=== PATIENT | male | born 1955 | race Caucasian/White ===

== ENCOUNTER 2018-06-28 07:00 | Day surgery (SDC) | payer OTHER ==
[2018-06-28] MEDS ORDERED: Ringers Lactate 1,000 ML IV ONE (07:34)
[2018-06-28] MEDS ORDERED: LIDOCAINE 2% MPF 5 ML VIAL ONE (08:28)
[2018-06-28] MEDS ORDERED: PROPOFOL 200 MG/20 ML VIAL IV ONE (08:33)
--- NOTE | 2018-06-28 09:05 | ENDO RPT ---
[address], [address] COLONOSCOPY PROCEDURE REPORT EXAM DATE: 06/28/2018 PATIENT NAME: Omero Fink MR #: [id number] BIRTHDATE: 1955 ATTENDING: Tong Moya DR STATUS: outpatient AUTO BODY MAN: Cassi Garcia RN and Dominic Campoverde [facility] INDICATIONS: The patient is a 62 yr old Male here for a colonoscopy due to colon cancer screening and history of polyps PROCEDURE PERFORMED: Colonoscopy with biopsy - cold polypectomy MEDICATIONS: Per Anesthesia. ESTIMATED BLOOD LOSS: None CONSENT: The patient understands the risks and benefits of the procedure and understands that these risks include, but are not limited to: sedation, allergic reaction, infection, perforation and/or bleeding. Alternative means of evaluation and treatment include, among others: physical exam, x-rays, and/or surgical intervention. The patient elects to proceed with this endoscopic procedure. DESCRIPTION OF PROCEDURE: During intra-op preparation period all mechanical medical equipment was checked for proper function. Hand hygiene and appropriate measures for infection prevention was taken. Procedure, possible complications, alternatives including, but not limited to possibility of bleeding, perforation, tear, infection, sepsis, need for surgery, need for blood transfusion, were explained to the patient. After the risks, benefits and alternatives of the procedure were thoroughly explained, Informed consent was verified, confirmed and timeout was successfully executed by the treatment team. The patient was placed in the left lateral position. A digital rectal exam was performed and revealed internal hemorrhoids. After appropriate level of anesthesia, the scope was passed. The EC-[id number] ([id number]) endoscope was introduced through the anus and advanced to the cecum, which was identified by both the appendix and ileocecal valve. The quality of the prep was poor. The instrument was then slowly withdrawn as the colon was fully examined. Scope withdrawal time was 10 minutes. COLON FINDINGS: A few small smooth flat polyps were found at the hepatic flexure, in the rectum, and sigmoid colon. A polypectomy was performed with cold forceps. The resection was complete, the polyp tissue was completely retrieved and sent to histology. Small internal hemorrhoids were found. Retroflexed views revealed no abnormalities. The scope was then completely withdrawn from the patient and the procedure terminated. ADVERSE EVENTS: There were no complications. IMPRESSIONS: 1. Few small flat polyps were found at the hepatic flexure, in the rectum, and sigmoid colon; polypectomy was performed with cold forceps 2. Small internal hemorrhoids RECOMMENDATIONS: 1. follow-up: office 2 week(s) 2. avoid NSAIDS for 2 weeks 3. await biopsy results 4. fiber rich diet 5. yearly hemoccult starting in 4 years 6. hemorrhoidal hygiene RECALL: Return in 3 year(s) for Colonoscopy, pending biopsy results. Pending biopsy results Tong Moya DR eSigned: Tong Moya DR 06/28/2018 8:56 AM cc: CPT CODES: ICD9 CODES: PATIENT NAME: Omero Fink MR#: [id number]
== END 2018-06-28 09:31 | disposition home or self-care (01) ==
LOC: OR 07:00
PROVIDERS: ATTEND Surgery
PROC: 0DBL8ZX Excision of Transverse Colon, Via Natural or Artificial Opening Endoscopic, Diagnostic (ICD-10-PCS; 2018-06-28)
PROC: 0DBP8ZX Excision of Rectum, Via Natural or Artificial Opening Endoscopic, Diagnostic (ICD-10-PCS; principal; 2018-06-28 09:15)
DX: K63.5 Polyp of colon (principal); K62.1 Rectal polyp; K64.8 Other hemorrhoids; I10 Essential (primary) hypertension; E78.5 Hyperlipidemia, unspecified; H40.9 Unspecified glaucoma; F17.210 Nicotine dependence, cigarettes, uncomplicated; Z79.82 Long term (current) use of aspirin; Z82.49 Family history of ischemic heart disease and other diseases of the circulatory system
CPT/HCPCS: 88305

== ENCOUNTER 2021-01-27 07:08 | Day surgery (SDC) | payer OTHER ==
[2021-01-26 12:21] LABS: Absolute Lymphocytes (CBC) 1.3 K/uL (0.7-4.9); Basophils % 0.6 % (0-1.3); Hematocrit 31.8 % (39.6-49.0); Lymphocytes % 19.8 % (15.3-44.8); MPV 7.3 fL (7.6-11.3); RBC Red Blood Cell Count 3.39 M/uL (4.33-5.43)
[2021-01-26 12:45] LABS: Potassium 3.9 mmol/L (3.5-5.1)
--- NOTE | 2021-01-26 12:48 | RAD REPORT ---
EXAM DESCRIPTION: RAD - Chest Pa And Lat (2 Views) - 01/26/2021 12:13 pm CLINICAL HISTORY: preop, pending cardiac catheterization COMPARISON: Portable chest December 2009, CT chest trauma Michael December 2009 TECHNIQUE: Frontal and lateral views of the chest were obtained. FINDINGS: The lungs are clear of an acute infiltrate, failure or volume overload finding. In the lef t midlung field there is a ill-defined 7 mm nodule. No other mass or nodule confirmed. No definitive correlate seen on the 2 prior studies to allow all confirmation of stability. Heart size is normal and central vasculature is within normal limits. No pleural effusion or pneu mothorax seen. No acute bony finding noted. No aortic abnormality. IMPRESSION: No failure, infiltrate or acute cardiopulmonary finding. Small 7 mm nodule in the left midlung field is identified. This is not emergent but can be followed u p. Cereal repeat chest chest films could be obtained, first one to be performed in 3-4 months. . If patient is considered at higher risk for malignancy, contrast-enhanced CT chest imaging could be perf ormed.
[2021-01-26 12:50] LABS: Protime INR 0.97
[~2021-01-27 07:08] MED LIST: HEPA 1000U/500MLS 1,000 UNIT/500 ML BAG IV ONE; LIDOCAINE 1% 20 ML MDV ONE
[2021-01-27 08:06] VITALS: TEMP 95.9
[2021-01-27] MEDS ORDERED: NA CHLORIDE 0.9% 500 ML ONE (08:16)
[2021-01-27] MEDS ORDERED: MIDAZOLAM HCL 2 MG/2 ML INJ ONE ×2 (09:29→09:40)
[2021-01-27] MEDS ORDERED: ATROPINE SULF 1 MG/10 ML SYR IV ONE (09:30)
[2021-01-27] MEDS ORDERED: FENTANYL CITR 100 MCG/2 ML ONE (09:30)
[2021-01-27] MEDS ORDERED: NA CHLORIDE 0.9% 0 ML ONE (09:30)
[2021-01-27 11:13] VITALS: BP 155/54; O2SAT 99
--- NOTE | 2021-01-27 20:44 | OP ---
Date of Procedure: 01/27/2021 Surgeon: John Allison MD International Tax Manager: Cosme Rodgers. Procedures Performed: Left heart catheterization, selective coronary arteriogram, and left ventricul ogram. Indication: Positive stress test. Mr. Fink is a 65-year-old white male, has had a history of leiva tid stent on the right side. Recent carotid Doppler was unremarkable. He has had chest pain, positi ve anteroapical inferior ischemia. Description Of Procedure: He was brought to the radiographer cardiac catheterization today for a diagnostic catheterization. He was prepped and draped in routine sterile fashion, given Versed for sedation. A 6-Icelandic sheath int roduced in the right common femoral artery successfully using Seldinger technique and 10 cc of Xyloca ine. A 4-Icelandic JR4 was inserted into the left main. Angiography showed a 90% long ostial LAD steno sis, 80% ostial diagonal stenosis, normal circumflex. A 6-Icelandic JR4 was used to cannulate the right main that was a normal RCA in his right dominant. Following that, a 6-Icelandic pigtail catheter was i ntroduced in the left ventricle. He had a normal left ventricular ejection fraction, normal wall mot ion, normal left ventricular end-diastolic pressure. No new complications. Estimated Blood Loss: 5 mL. Postoperative Diagnoses: Coronary artery disease, severe. Plan for CABG. I will give him a CD and I will have a CD myself for Dr. Mathur or Dr. Burciaga to review. Anesthesia: Total conscious sedation was 45 minutes. Plan: Plan is to have the patient at bedrest for 2 hours, go home in 2 hours and we will arrange for outpatient workup. BRIANNA/GHASSAN Voice ID: [id number] Report ID: [id number]
== END 2021-01-27 11:45 | disposition home or self-care (01) ==
LOC: CCL 07:08
DX: I25.10 Atherosclerotic heart disease of native coronary artery without angina pectoris (principal); I70.213 Atherosclerosis of native arteries of extremities with intermittent claudication, bilateral legs; I65.23 Occlusion and stenosis of bilateral carotid arteries; I10 Essential (primary) hypertension; E78.2 Mixed hyperlipidemia; G62.9 Polyneuropathy, unspecified; Z95.820 Peripheral vascular angioplasty status with implants and grafts; Z87.891 Personal history of nicotine dependence; Z20.822 Contact with and (suspected) exposure to COVID-19; Z82.49 Family history of ischemic heart disease and other diseases of the circulatory system
CPT/HCPCS: 85025; 80048; 36415; 85610; 85730; 71046; 93458; U0003; C1893; J2250 ×2; J3010; J7040; J1644; J0583

== ENCOUNTER 2021-02-17 22:55 | Emergency (ER) | payer OTHER ==
--- OUTSIDE RECORDS SUMMARY | 2021-02-17 22:58 | XMS REPORT | Continuity of Care Document ---
:[address] [facility] t Address [address] [place] [address] Care Team Providers Name Role Phone Ghislaine MILLARD Attending Clinician Unavailable Provider Attending Clinician Unavailable Mark PLATT Attending Clinician Unavailable Patrica ARAUJO, Doyle Attending Clinician [phone] Payers Payer Name Policy Type Policy Effective Expiration Source Number Date Date TEXANPLUSTEXANPLUS [id number] 2020 [place] [id number] 2020- 00:00:00 M ethodist esentHMO Problems Condition Condition Condition Status Onset Resolution Last Treating Co mments Source Name Details Category Date Date Treatment Clinician Date Coronary Coronary Disease Active Overview: [place] artery artery 5-25 Formattin Method[facility] disease disease 00:00: g of this st involving involving 00 note stebbins stebbins might be coronary coronary different artery of artery of from the stebbins stebbins original. heart with heart with Added unstable unstable automatic angina angina ally from pectoris pectoris request for surgery [id number] Body mass Body Mass Problem Active Tangela barbara index Index 3-09 Family 25-29 - 25-29 - 00:00: Practic overweight Overweight 00 e Essential Essential Problem Active Tangela barbara hypertensi Hypertensi 3-05 Fa yfn on on 00:00: Practic 00 e Allergies, Adverse Reactions, Alerts Allergy Allergy Status Severity Reaction(s) Onset Inactive Treating Comm ents Source Name Type Date Date Clinician Vitamin Propensi Active Swelling [place] A ty to 5-18 Methodi adverse 00:00: st reaction 00 s to drug Social History Social Habit Start Date Stop Date Quantity Comments Source History of tobacco Cigarette Smoker [place] use [facility] Exposure to Not sure [place] SARS-CoV-2 (event) Method ist Cigarettes smoked 2021-02-08 2021-02-08 [place] current (pack per 00:00:00 00:00:[address] day) - Reported Cigarette 2021-02-08 2021-02-08 [place] pack-years 00:00:00 00:00:00 [facility] Tobacco use and 2021-02-08 2021-02-08 Never used [place] exposure 00:00:00 00:00:00 [facility] Alcohol intake 2021-02-08 2021-02-08 Current drinker [place] 00:00:00 00:00:00 of alcohol [facility] (finding) Sex [birth year] [place] 00:00:00 00:00:00 [facility] Smoking Status Start Date Stop Date Source Heavy Tobacco Smoker [facility] Practice Current every day smoker 2021-02-08 00:00:00 Gatito armijo [facility] Medications Ordered Filled Start Stop Current Ordering Indication Dosage Frequency Signature Comments Components Source Medication Medication Date Date Medication? Clinician (SIG) Name Name ferrous Yes Q24H daily. Silvino sulfate 325 -18 Methodi (65 FE) MG 16:12: st tablet 25 aspirin 81 Yes Q24H daily. Analiliat on mg chewable -18 Methodi tablet 16:12: st 25 cholecalcif Yes Q24H daily. Analilia carmona sundar, 5-18 [facility] vitamin D3, 16:12: st 50 mcg 25 (2,000 unit) capsule capsule lisinopriL- Yes Q24H daily. Analilia ton hydrochloro 5-18 [facility] thiazide 16:12: st (PRINZIDE) 25 20-12.5 mg per tablet bimatoprost Yes Q24H daily. Analilia ton (Lumigan) 5-18 Methodi 0.01 % 16:12: st ophthalmic 25 drops multivit Yes multivitam Gatito armijo with 5-18 in 1 daily Methodi minerals/simi 16:12: st tein 25 (MULTIVITAM IN 50 PLUS ORAL) simvastatin 0 Yes [place] (ZOCOR) 40 5-16 Method[facility] mg tablet 00:00: st 00 clopidogreL Yes 75mg QD Take 75 mg [place] (PLAVIX) 75 3-29 by mouth Meth kobi mg tablet 00:00: daily. st 00 carvediloL 2009-0 Yes Q24H daily. [place] (COREG) 6 Methodi 12.5 MG 00:00: st tablet 00 aspirin 81 aspirin 81 No 1 Q1D aspirin 81 Village mg chewable mg chewable mg F amily tablet Chew tablet Chew chewable Practic 1 tablet 1 tablet tablet e every day every day Chew 1 by oral by oral tablet route. route. every day by oral route. carvedilol carvedilol No 1 Q1D carvedilol [facility] 12.5 mg 12.5 mg 12.5 mg Family tablet Take tablet Take tablet Practic 1 tablet 1 tablet Take 1 e every day every day tablet by oral by oral every day route for route for by oral 90 days. 90 days. route for 90 days. clopidogrel clopidogrel No 1 Q1D clopidogre [facility] 75 mg 75 mg l 75 mg Family tablet Take tablet Take tablet Practic 1 tablet 1 tablet Take 1 e every day every day tablet by oral by oral every day route for route for by oral 90 days. 90 days. route for 90 days. ferrous ferrous No 1 Q1D ferrous Vill[place] e sulfate 325 sulfate 325 sulfate Family mg (65 mg mg (65 mg 325 mg (65 Practic iron) iron) mg iron) e tablet Take tablet Take tablet 1 tablet 1 tablet Take 1 every day every day tablet by oral by oral every day route. route. by oral route. lisinopril lisinopril No 1 Q1D lisinopril [facility] 20 20 20 Family mg-hydrochl mg-hydrochl mg-hydroch Practic orothiazide orothiazide lorothiazi e 12.5 mg 12.5 mg de 12.5 mg tablet Take tablet Take tablet 1 tablet 1 tablet Take 1 every day every day tablet by oral by oral every day route. route. by oral route. Trae Larkin No 1drop(s Q1D Trae Tangela barbara 0.01 % eye 0.01 % eye ) 0.01 % eye Family drops Apply drops Apply drops Practic 1 drop 1 drop Apply 1 e every day every day drop every by by day by ophthalmic ophthalmic ophthalmic route for route for route for 90 days. 90 days. 90 days. multivitami multivitami No multivitam Village n 1 daily n 1 daily in 1 daily Family Practic e simvastatin simvastatin No 1 Q1D gail [facility] 40 mg 40 mg n 40 mg Family tablet Take tablet Take tablet Practic 1 tablet 1 tablet Take 1 e every day every day tablet by oral by oral every day route for route for by oral 90 days. 90 days. route for 90 days. Vitamin D3 Vitamin D3 No 1capsul Q1D Vitamin D3 [facility] 50 mcg 50 mcg e(s) 50 mcg Family (2,000 (2,000 (2,000 Practic unit) unit) unit) e capsule capsule capsule Take 1 Take 1 Take 1 capsule capsule capsule every day every day every day by oral by oral by oral route. route. route. Immunizations Ordered Immunization Filled Immunization Date Status Commen ts Source Name Name pneumococcal pneumococcal 2019-06-24 [facility] polysaccharide PPV23 polysaccharide PPV23 00:00:00 Practice pneumococcal pneumococcal 2018-06-24 [facility] conjugate PCV 13 conjugate PCV 13 00:00:00 Pr actice Vital Signs Vital Name Observation Time Observation Value Comments Source BP Diastolic 2019-11-27 68 mm[Hg] [facility] 00:00:00 Practice Height 2019-11-27 64 [in_i] [facility] 00:00:00 Practice BMI (Body Mass 2019-11-27 27.6 kg/m2 [facility] Famil y Index) 00:00:00 Practice BP Systolic 2019-11-27 142 mm[Hg] [facility] 00:00:00 Practice Body Weight 2019-11-27 160.6 [lb_av] [facility] 00:00:00 Practice Systolic blood 2021-02-08 149 mm[Hg] 135/67 LT arm [place] pressure 16:04:00 [facility] Diastolic blood 2021-02-08 68 mm[Hg] 135/67 LT arm [place] pressure 16:04:00 [facility] Heart rate 2021-02-08 70 /min [place] 16:04:00 [facility] Body temperature 2021-02-08 36.17 Ayesha [place] 16:04:00 [facility] Body height 2021-02-08 162.6 cm [place] 16:04:00 [facility] Body weight 2021-02-08 71.351 kg [place] 16:04:00 [facility] BMI 2021-02-08 27.00 kg/m2 [place] 16:04:00 [facility] Oxygen saturation 2021-02-08 99 /min [place] in Arterial blood 16:04:00 [facility] by Pulse oximetry Procedures Procedure Date / Time Performed Performing Clinician Tobin chambers Procedure on Carotid 2014-01-26 00:00:00 [facility] Body Practice Abdomen Surgery 2010-01-19 00:00:00 [facility] Cristian susan Procedure Practice Plan of Care Planned Activity Planned Date Details Comments Source Future Scheduled Test 2021-04-24 INFLUENZA VACCINE H o[place] [facility] 00:00:00 [code = INFLUENZA VACCINE] Future Scheduled Test 2006 COLONOSCOPY [place] [facility] 00:00:00 SCREENING [code = COLONOSCOPY SCREENING] Future Scheduled Test 2006 SHINGLES VACCINES H o[place] [facility] 00:00:00 (#1) [code = SHINGLES VACCINES (#1)] Future Scheduled Test 1974 Hepatitis C [place] [facility] 00:00:00 screening (procedure) [code = 051215498] Future Scheduled Test 1968 COVID-19 VACCINE (1) [place] [facility] 00:00:00 [code = COVID-19 VACCINE (1)] Future Appointment 2021-03-11 Stevie armijo [facility] 07:30:00 , [address] [place] [address] STREET; [address], [place] [address] Future Appointment 2021-03-11 Stevie armijo [facility] 07:30:00 , [address] [place], [place] [address]N STREET; [address], [place] [address] Instructions [facility] Encounters Start End Encounter Admission Attending Care Care Encounter Source Date/Time Date/Time Type Type Clinicians Facility Department ID 2021-02-08 2021-02-09 Outpatient [facility] [id number] [place] 00:00:00 00:00:00 , STEVIE [address] 2021-02-03 2021-02-03 Outpatient [facility] [id number] [place] 00:00:00 00:00:00 , STEVIE [address] 2021-01-31 2021-01-31 Outpatient [facility] [id number] [facility] 00:00:00 00:00:00 Neha Huertas ent Clinics 2021-01-14 2021-01-14 Outpatient [facility] [id number] [facility] Neha blank Outpati ent Clinics 2020-10-21 2020-10-21 Outpatient [facility] [id number] [facility]00 [facility] Outpati ent [facility] 2019-11-27 2019-11-27 Mazin Goddard [facility] [place] - [id number] [facility] 00:00:00 00:00:00 AUGUSTIN Mukherjee[facility] [address], [email or web address] e [facility], [facility], [place] [address] , Ph. Results This patient has no known results.
[2021-02-17 23:37] LABS: Absolute Lymphocytes (CBC) 1.9 K/uL (0.7-4.9); Basophils % 0.8 % (0-1.3); Lymphocytes % 25.3 % (15.3-44.8); MPV 7.5 fL (7.6-11.3); RBC Red Blood Cell Count 2.13 M/uL (4.33-5.43)
[2021-02-17 23:44] LABS: Hematocrit 19.6 % (39.6-49.0)
[2021-02-17 23:55] LABS: ALT/SGPT 20 U/L (12-78); AST/SGOT 17 U/L (15-37); Albumin 3.8 g/dL (3.4-5.0); Alkaline Phosphatase 59 U/L (45-117); BUN Blood Urea Nitrogen 24 mg/dL (7-18); Bicarbonate 29 mmol/L (21-32); Bilirubin Direct < 0.1 mg/dL (0-0.2); Bilirubin Total 0.2 mg/dL (0.2-1.0); Glucose Level 104 mg/dL (74-106); Magnesium 2.2 mg/dL (1.8-2.4); NT PRO-BNP 326 pg/mL (<125); Protein, Total 7.4 g/dL (6.4-8.2); Sodium Level 134 mmol/L (136-145); Troponin (Emerg Dept Use Only) < 0.02 ng/mL (0.0-0.045)
[2021-02-18] MEDS ORDERED: MORPHINE 4 MG/ML SYR ONE (00:08)
[2021-02-18] MEDS ORDERED: ONDANSETRON 4 MG/2 ML VIAL ONE (00:09)
[2021-02-18] MEDS ORDERED: NA CHLORIDE 0.9% 250 ML ONE ×2 (00:33→02:29)
[2021-02-18] MEDS ORDERED: PANTOPRAZOLE 40 MG INJ ONE (00:33)
[2021-02-18 00:34] LABS: Protime INR 0.97
--- NOTE | 2021-02-18 03:40 | ER ---
Nurse's Notes [facility] Name: Omero Fink Age: 65 yrs Sex: Male : 1955 Arrival Date: 02/17/2021 Time: 23:02 Bed 15 Private MD: Diagnosis: Chest pain, unspecified;GI Bleed Presentation: 02/17 23:03 Chief complaint: EMS states: on and off chest pain that started an hour ago. Pt also wh C/O left arm pain and numbness of the lips. Pt states Hx of 90% blockage and due for BYpass on March 11. Coronavirus screen: Client denies travel out of the [place] in the last 14 days. At this time, the client does not indicate any symptoms associated with coronavirus-19. Ebola Screen: Patient negative for fever greater than or equal to 101.5 degrees Fahrenheit, and additional compatible Ebola Virus Disease symptoms Patient denies exposure to infectious person. Initial Sepsis Screen: Does the patient meet any 2 criteria? No. Patient's initial sepsis screen is negative. Does the patient have a suspected source of infection? No. Patient's initial sepsis screen is negative. Risk Assessment: Do you want to hurt yourself or someone else? Patient reports no desire to harm self or others. Onset of symptoms was February 17, 2021. 23:03 Method Of Arrival: EMS: [facility] 23:03 Acuity: MITA 3 23:05 Care prior to arrival: None. Historical: - Allergies: 23:07 No Known Allergies; - Home Meds: 23:07 Aspirin Oral [Active]; carvedilol oral oral [Active]; clopidogrel oral oral [Active]; Lisinopril Oral [Active]; Simvastatin Oral [Active]; - PMHx: 23:07 Hypertension; Afib; wh - Immunization history:: Adult Immunizations not up to date. - Social history:: Smoking status: Patient/guardian denies using tobacco, Patient uses alcohol. Screenin:08 Abuse screen: Denies threats or abuse. Denies injuries from another. Nutritional screening: No deficits noted. Tuberculosis screening: No symptoms or risk factors identified. Fall Risk None identified. Assessment: 23:08 General: Appears in no apparent distress. Behavior is calm, cooperative, appropriate wh for age. Pain: Complains of pain in chest Pain radiates to left arm Quality of pain is described as pressure, Pain began 1 hour ago. Is intermittent. Neuro: Level of Consciousness is awake, alert, obeys commands, Oriented to person, place, time, situation, Appropriate for age. Cardiovascular: Heart tones S1 S2. Respiratory: Airway is patent Respiratory effort is even, unlabored, Respiratory pattern is regular, symmetrical, Breath sounds are clear bilaterally. GI: Abdomen is flat, non-distended. : No signs and/or symptoms were reported regarding the genitourinary system. EENT: No signs and/or symptoms were reported regarding the EENT system. Derm: Skin is intact, is healthy with good turgor, Skin is pink, warm \T\ dry. normal. Musculoskeletal: Circulation, motion, and sensation intact. 02/18 01:00 Reassessment: Patient appears in no apparent distress at this time. Patient and/or family updated on plan of care and expected duration. Pain level reassessed. Patient is alert, oriented x 3, equal unlabored respirations, skin warm/dry/pink. 02:30 Reassessment: Patient appears in no apparent distress at this time. Patient and/or wh family updated on plan of care and expected duration. Pain level reassessed. Patient is alert, oriented x 3, equal unlabored respirations, skin warm/dry/pink. Initial BT 1 unit PRBC administered. Vital Signs: 02/17 23:03 BP 137 / 95; Pulse 75; Resp 18; Temp 97.8; Pulse Ox 97% ; Weight 73.94 kg; Height 5 ft. 5 in. (165.10 cm); 02/18 01:00 BP 138 / 58; Pulse 68; Resp 18; Pulse Ox 100% on R/A; 02:30 BP 137 / 59; Pulse 69; Resp 18; Pulse Ox 97% on R/A; 02/17 23:03 Body Mass Index 27.12 (73.94 kg, 165.10 cm) ED Course: 02/17 23:02 Patient arrived in ED. 23:05 Triage completed. 23:05 Blas Rodríguez MD is Attending Physician. [facility] 23:05 Inserted saline lock: 20 gauge in right antecubital area, using aseptic technique. Blood collected. Patient maintains SpO2 saturation greater than 95% on room air. 23:15 Arm band placed on right wrist. 23:15 Patient has correct armband on for positive identification. Placed in gown. Bed in low wh position. Call light in reach. Side rails up X 1. shelter monitor on. Pulse ox on. NIBP on. 23:26 Vishal Puentes, RN is Primary Nurse. 02/18 00:10 XRAY Chest (1 view) In Process Unspecified. EDMS 00:22 initiated a transfer with Michelle Boyce from [facility]. mw2 00:49 doc [address] doc with Dr. Rojo from [facility]. mw2 01:13 [facility] denied because they feel the patient needs an IMU or ICU bed mw2 which they do not have. 02:20 initiated a transfer with Maria Isabel from [facility]. mw2 02:30 [facility] denied due to IMU capacity. mw2 02:31 trying [facility]. mw2 03:08 doc to doc with the hospitalist from [facility]. mw2 03:14 [facility] denied due to capacity. mw2 03:15 trying to transfer to [facility]. mw2 03:34 administrative approval given by Maria Isabel Alston/ patient has been accepted to [address]/ Dr. Watson accepted the patient in transfer/ report to be called to [phone]. 04:13 No provider procedures requiring assistance completed. Patient transferred, IV remains in place. Administered Medications: 00:12 Drug: morphine 2 mg {Note: RASS 0.} Route: IVP; Site: right antecubital; 02:47 Follow up: Response: No adverse reaction; Pain is decreased; RASS: Alert and Calm (0) 00:24 Drug: ProTONIX (pantoprazole) 8 mg/hr Route: IV; Rate: 25 ml/hr; Site: right antecubital; 04:14 Follow up: Response: No adverse reaction; IV Status: Infusion continued upon transfer 00:26 Drug: ProTONIX (pantoprazole) 80 mg Route: IVP; Site: right antecubital; 01:28 Follow up: Response: No adverse reaction 01:29 Drug: Zofran (Ondansetron) 4 mg Route: IVP; Site: right antecubital; 02:47 Follow up: Response: No adverse reaction; Nausea is decreased Medication: 02:30 Blood products: PRBCs X 1 unit given. Outcome: 03:39 ER care complete, transfer ordered by . mh7 04:14 Transferred by ground EMS to [facility], Transfer form completed. X-rays sent w/ patient. Note: Report given to Camilo MILLARD and [facility] 04:14 Condition: stable 04:14 Instructed on the need for transfer. 04:14 Patient left the ED. Signatures: Dispatcher [employer] EDMS Vishal Puentes RN RN Patric Mckeon mw2 Blas Rodríguez MD MD mh7
--- NOTE | 2021-02-18 03:40 | EDPHYS ---
Physician Documentation [facility] Name: Omero Fink Age: 65 yrs Sex: Male : 1955 Arrival Date: 02/17/2021 Time: 23:02 Bed 15 Private MD: ED Physician Blas Rodríguez HPI: 02/17 23:40 This 65 yrs old Male presents to ER via EMS with complaints of Chest Pain. [facility] 23:40 The patient or guardian reports chest pain that is located primarily in the anterior mh7 chest wall, left. Onset: today, at 21:00. The pain radiates to the left arm. Associated signs and symptoms: Pertinent positives: shortness of breath, Pertinent negatives: abdominal pain, cough, diaphoresis, dizziness, headache, lower extremity pain, lower extremity swelling, lightheadedness, nausea, near syncope, palpitations, recent travel, syncope, vomiting. The chest pain is described as a heaviness. Duration: The patient or guardian reports multiple episodes, that are intermittent, that wax and wane. Modifying factors: The symptoms are alleviated by nothing. the symptoms are aggravated by nothing. Severity of pain: At its worst the pain was moderate today, in the emergency department the pain has improved moderately. Historical: - Allergies: 23:07 No Known Allergies; wh - Home Meds: 23:07 Aspirin Oral [Active]; carvedilol oral oral [Active]; clopidogrel oral oral [Active]; wh Lisinopril Oral [Active]; Simvastatin Oral [Active]; - PMHx: 23:07 Hypertension; Afib; wh - Immunization history:: Adult Immunizations not up to date. - Social history:: Smoking status: Patient/guardian denies using tobacco, Patient uses alcohol. ROS: 23:40 Constitutional: Negative for fever, chills, and weight loss, Eyes: Negative for injury, mh7 pain, redness, and discharge, ENT: Negative for injury, pain, and discharge, Neck: Negative for injury, pain, and swelling, Abdomen/GI: Negative for abdominal pain, nausea, vomiting, diarrhea, and constipation, Back: Negative for injury and pain, : Negative for injury, bleeding, discharge, and swelling, MS/Extremity: Negative for injury and deformity, Skin: Negative for injury, rash, and discoloration, Neuro: Negative for headache, weakness, numbness, tingling, and seizure, Psych: Negative for depression, anxiety, suicide ideation, homicidal ideation, and hallucinations, Allergy/Immunology: Negative for hives, rash, and allergies, Endocrine: Negative for neck swelling, polydipsia, polyuria, polyphagia, and marked weight changes, Hematologic/Lymphatic: Negative for swollen nodes, abnormal bleeding, and unusual bruising. Exam: 23:40 Constitutional: This is a well developed, well nourished patient who is awake, alert, mh7 and in no acute distress. Head/Face: Normocephalic, atraumatic. Eyes: Pupils equal round and reactive to light, extra-ocular motions intact. Lids and lashes normal. Conjunctiva and sclera are non-icteric and not injected. Cornea within normal limits. Periorbital areas with no swelling, redness, or edema. Neck: Trachea midline, no thyromegaly or masses palpated, and no cervical lymphadenopathy. Supple, full range of motion without nuchal rigidity, or vertebral point tenderness. No Meningismus. Chest/axilla: Normal chest wall appearance and motion. Nontender with no deformity. No lesions are appreciated. Cardiovascular: Regular rate and rhythm with a normal S1 and S2. No gallops, murmurs, or rubs. Normal PMI, no JVD. No pulse deficits. Respiratory: Lungs have equal breath sounds bilaterally, clear to auscultation and percussion. No rales, rhonchi or wheezes noted. No increased work of breathing, no retractions or nasal flaring. Abdomen/GI: Soft, non-tender, with normal bowel sounds. No distension or tympany. No guarding or rebound. No evidence of tenderness throughout. Back: No spinal tenderness. No costovertebral tenderness. Full range of motion. Skin: Warm, dry with normal turgor. Normal color with no rashes, no lesions, and no evidence of cellulitis. MS/ Extremity: Pulses equal, no cyanosis. Neurovascular intact. Full, normal range of motion. Neuro: Awake and alert, GCS 15, oriented to person, place, time, and situation. Cranial nerves II-XII grossly intact. Motor strength 5/5 in all extremities. Sensory grossly intact. Cerebellar exam normal. Normal gait. Psych: Awake, alert, with orientation to person, place and time. Behavior, mood, and affect are within normal limits. 23:40 Abdomen/GI: Rectal exam: Prostate: normal, rectal tone normal, Stool: guaiac positive, mh7 black, hemorrhoid(s), are not appreciated, mass, is not appreciated, swelling, is not appreciated, tenderness, is not appreciated, fecal impaction, is not appreciated, the exam is chaperoned by the nurse. Vital Signs: 23:03 BP 137 / 95; Pulse 75; Resp 18; Temp 97.8; Pulse Ox 97% ; Weight 73.94 kg; Height 5 ft. 5 in. (165.10 cm); 02/18 01:00 BP 138 / 58; Pulse 68; Resp 18; Pulse Ox 100% on R/A; 02:30 BP 137 / 59; Pulse 69; Resp 18; Pulse Ox 97% on R/A; 02/17 23:03 Body Mass Index 27.12 (73.94 kg, 165.10 cm) MDM: 02/17 23:40 Differential diagnosis: acute myocardial infarction, acute pericarditis, anxiety, mh7 coronary artery disease chest wall pain, congestive heart failure costochondritis, myocarditis, pericarditis, pneumonia, pneumothorax. HEART Score: History: Moderately Suspicious (1), ECG: Normal (0), Age: > 45 and < 65 years (1), Risk Factors: 1 or 2 risk factors (1), [Hypertension] Troponin: < or = 1 x Normal Limit (0), Total Score = 4. Data reviewed: vital signs, nurses notes, old medical records, lab test result(s), cardiac enzymes, CBC, electrolytes, EKG, radiologic studies, plain films. Data interpreted: Pulse oximetry: on room air is 97 %. Interpretation: normal. Counseling: I had a detailed discussion with the patient and/or guardian regarding: the historical points, exam findings, and any diagnostic results supporting the discharge/admit diagnosis, the presence of at least one elevated blood pressure reading (>120/80) during this emergency department visit, lab results, radiology results, the need to transfer to another facility, [facility] does not immediately have the required specialist. 02/18 03:39 Patient medically screened. [facility] 02/17 23:03 Order name: Basic Metabolic Panel; Complete Time: 23:57 02/17 23:03 Order name: CBC with Diff; Complete Time: 23:45 02/17 23:03 Order name: LFT's; Complete Time: 00:12 02/17 23:03 Order name: Magnesium; Complete Time: 00:12 02/17 23:03 Order name: NT PRO-BNP; Complete Time: 00:12 02/17 23:03 Order name: PT-INR; Complete Time: 00:51 02/17 23:03 Order name: Troponin (emerg Dept Use Only); Complete Time: 00:12 02/17 23:45 Order name: Type And Screen [facility] 02/18 00:04 Order name: ETOH Level; Complete Time: 03:06 [facility] 02/18 00:05 Order name: Lipase; Complete Time: 03:06 [facility] 02/18 00:20 Order name: COVID-19 : Document "Date of Symptom Onset" if Symptomatic. [facility] 02/17 23:03 Order name: XRAY Chest (1 view) 02/17 23:03 Order name: EKG; Complete Time: 23:04 02/17 23:03 Order name: Cardiac monitoring; Complete Time: 00:06 02/17 23:03 Order name: EKG - Nurse/Tech; Complete Time: 00:06 02/17 23:03 Order name: IV Saline Lock; Complete Time: 00:06 02/17 23:03 Order name: Labs collected and sent; Complete Time: 00:06 02/17 23:03 Order name: O2 Per Protocol; Complete Time: 00:06 02/17 23:03 Order name: O2 Sat Monitoring; Complete Time: 00:06 02/17 23:44 Order name: Labs - recollect needed: blue top needed; Complete Time: 00:05 [facility] 02/18 00:39 Order name: Packed RBC Leukored [facility] 02/18 01:20 Order name: SARS-COV-2 RT PCR; Complete Time: 03:06 [facility] 02/18 00:04 Order name: Transfuse; Complete Time: 02:12 [facility] Administered Medications: 00:12 Drug: morphine 2 mg {Note: RASS 0.} Route: IVP; Site: right antecubital; 02:47 Follow up: Response: No adverse reaction; Pain is decreased; RASS: Alert and Calm (0) 00:24 Drug: ProTONIX (pantoprazole) 8 mg/hr Route: IV; Rate: 25 ml/hr; Site: right antecubital; 04:14 Follow up: Response: No adverse reaction; IV Status: Infusion continued upon transfer 00:26 Drug: ProTONIX (pantoprazole) 80 mg Route: IVP; Site: right antecubital; 01:28 Follow up: Response: No adverse reaction 01:29 Drug: Zofran (Ondansetron) 4 mg Route: IVP; Site: right antecubital; 02:47 Follow up: Response: No adverse reaction; Nausea is decreased Disposition: 02/18/21 03:39 Transfer ordered to [facility]. Diagnosis are Chest pain, unspecified, GI Bleed. - Reason for transfer: Higher level of care. - Accepting physician is Dr. Watson. - Condition is Stable. - Problem is new. - Symptoms have improved. Signatures: Dispatcher [employer] [facility] Jorge Soares, SET UP MECHANIC CROWN ASSEMBLY MACHINE-C SET UP MECHANIC CROWN ASSEMBLY MACHINE-Cla1 Vishal Puentes RN RN Patric Mckeon [facility] Blas Rodríguez MD MD mh7 Corrections: (The following items were deleted from the chart) 00:35 00:21 CORONAVIRUS ordered. [facility] EDMS 00:39 00:05 PACKED RBC LEUKORED -1+BB.LAB.BRZ ordered. [facility] EDMS 00:39 00:06 ABO/RH typing ordered. [facility] EDMS 00:39 00:06 Antibody Screen ordered. [facility] EDMS 04:14 03:39 02/18/2021 03:39 Transfer ordered to [facility]. Diagnosis is Chest wh pain, unspecified; GI Bleed. Reason for transfer: Higher level of care. Accepting physician is Dr. Watson. Condition is Stable. Problem is new. Symptoms have improved. mh7
[2021-02-18 04:22] VITALS: TEMP 97.8
[2021-02-18 04:24] VITALS: BP 137/59; O2SAT 97
--- NOTE | 2021-02-18 07:51 | EKG ---
Test Date: 2021-02-17 Test Time: 22:59:54 Statistical Programmer Analyst: JATIN MEASUREMENT RESULTS: Intervals: Rate: 78 MA: QRSD: 64 QT: 360 QTc: 410 [place]: P: MA: QRS: 79 T: 67 INTERPRETIVE STATEMENTS: Accelerated Junctional rhythm Nonspecific ST abnormality Abnormal ECG Compared to ECG 10/20/1994 13:46:00 Accelerated junctional rhythm now present ST (T wave) deviation now present Sinus rhythm no longer present Right-axis deviation no longer present Electronically Signed On 02-18-21 07:51:27 CDT by John Allison
--- NOTE | 2021-02-18 08:22 | RAD REPORT ---
EXAM DESCRIPTION: RAD - Chest Single View - 02/18/2021 12:10 am CLINICAL HISTORY: CHEST PAIN Chest pain. COMPARISON: Chest Pa And Lat (2 Views) dated 01/26/2021; CHEST SINGLE VIEW dated 01/19/2010 FINDINGS: Portable technique limits examination quality. The lungs are grossly clear. The heart is normal in size. No displaced fractures. IMPRESSION: No acute intrathoracic process suspected.
--- NOTE | 2021-02-18 11:55 | EKG ---
Test Date: 2021-02-17 Test Time: 23:00:41 Sales Enablement Lead: JATIN MEASUREMENT RESULTS: Intervals: Rate: 79 LA: 186 QRSD: 78 QT: 376 QTc: 431 [place]: P: 73 LA: 186 QRS: 79 T: 68 INTERPRETIVE STATEMENTS: Normal sinus rhythm Normal ECG Compared to ECG 02/17/2021 22:59:54 Accelerated junctional rhythm no longer present ST (T wave) deviation no longer present Electronically Signed On 02-18-21 11:54:03 CDT by John Allison
== END 2021-02-18 04:14 | disposition short-term general hospital (02) ==
LOC: ER 22:55
DX: K92.2 Gastrointestinal hemorrhage, unspecified (principal); I10 Essential (primary) hypertension; I48.91 Unspecified atrial fibrillation; Z79.82 Long term (current) use of aspirin; Z20.822 Contact with and (suspected) exposure to COVID-19
CPT/HCPCS: 96365; 93005 ×2; 85025; 80048; 36415; 80320; 86900; 83735; 86850; 85610; 86901; 80076; 84484; 83690; 83880; 71045; 36430; 96375; 99285; 96366; U0003; C9113; P9016; J7050 ×2

== ENCOUNTER 2023-02-03 18:30 | Emergency (ER) | payer OTHER ==
--- OUTSIDE RECORDS SUMMARY | 2023-02-03 18:53 | XMS REPORT | Continuity of Care Document ---
:1955 Author Organization [facility] t Address [address] [place] [address] Care Team Providers Name Role Phone Marcell Albarado Attending Clinician Unavailable Harleen Cantu Attending Clinician Unavailable QI CHAVEZ Attending Clinician Unavailable CLAU IYER Attending Clinician Unavailable Deshaun-Mbayo_A_AH Attending Clinician Unavailable Deshaun-Mbayo_A_AH Admitting Clinician Unavailable Payers Payer Name Policy Type Policy Number Effective Date Expiration Date S cristine WELLCARE/WELLGA [id number] 2020 2024 RE TEXANPLUS 00:00:00 00:00:00 [place] [id number] Common Spiri t - [facility] [place] [id number] Common Spiri t - [facility] [place] [id number] Common Spiri t - [facility] [place] [id number] Common Spiri t - [facility] [id number] 2019 - TEXANPLUS 00:00:00 (MEDICARE REPLACEMENT/ADV ANTAGE - HMO) Problems Condition Condition Condition Status Onset Resolution Last Treating Co mments Source Name Details Category Date Date Treatment Clinician Date Coronary Coronary Disease Active Overview: Me manuelodi artery artery 5-[address] disease disease 00:00: g of this Hospi ta involving involving 00 note l sleetmute sleetmute might be coronary coronary different artery of artery of from the sleetmute sleetmute original. 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 - [facility] eyes [facility] [id number] Osteoarthr Problem Co mmon itis of [facility] - [facility] Center itis complicati on status [id number] Osteoarthr Problem Co mmon itis of [facility] lumbar - [facility] osteoarthr Center itis complicati on status [id number] Hypercalce Problem Com mon kendra [facility] Anemia Anemia, Problem Common unspecifie Spirit d type - [facility] Degenerati DDD Problem Commo n on of (degenerat Spirit lumbosacra urszula disc - CH I l disease), interverte lumbosacra Patrica kes bral disc l [facility] Atheroscle Coronary Problem Com mon rosis of artery Spirit sleetmute disease - CHI coronary involving artery sleetmute [facility] coronary [facility] artery of Center sleetmute heart with angina pectoris Cervical DDD Problem Common disc (degenerat Spirit disorder urszula disc - CHI disease), [facility] Tinnitus Tinnitus Problem Commo n Spirit - [facility] Glaucoma Glaucoma Problem Commo n Spirit 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 - [facility] [id number] Right Problem Common upper Spirit quadrant - [facility] pain [facility] [id number] Presence Problem Commo n of other Spirit vascular - [facility] implants and [facility] [id number] Polyp of Problem Commo n colon, Spirit unspecifie - [facility]I d part of [facility] unspecifie [facility] [id number] Neuropathy Problem Co mmon Spirit - [facility] [id number] Diarrhea, Problem Comm on unspecifie Spirit d type - [facility] [id number] Vitamin D Problem Comm on deficiency [facility] [id number] Other Problem Common specified Spirit postproced - [facility] ural [facility] [id number] Non-intrac Problem Com mon table Spirit vomiting - [facility] with St nausea[facility] d vomiting Center type Hyperlipid Hyperlipid Problem C ommon emia emia [facility] Essential Benign Problem Common hypertensi essential Spi rit on HTN - [facility] [id number] Atheroscle Problem C ommon [address] rosis of [facility] right [facility] carotid [facility] [id number] Skin Problem Common lesion [facility] [id number] Hyperglyce Problem Com mon kendra [facility] [id number] Prediabete Problem Co mm s [facility] Osteoarthr Osteoarthr Problem C ommon itis itis [facility] [id number] S/P CABG x Problem Co [facility] 2 [facility] Allergies, Adverse Reactions, Alerts Allergy Allergy Status Severity Reaction(s) Onset Inactive Treating Comm ents Source Name Type Date Date Clinician Vitamin Propensi Active Swelling [facility] A ty to 18 Health adverse 00:00: reaction 00 s Vitamin Propensi Active Swelling Metho di A ty to 5-18 st adverse 00:00: Hospita reaction 00 l s to drug Social History Social Habit Start Date Stop Date Quantity Comments Source Exposure to Not sure [facility] SARS-CoV-2 (event) History of Tobacco Common Spirit - Use [facility] Gender identity [facility] Sexual orientation [facility] Tobacco use and 2021-03-14 2021-03-14 Never used [facility] exposure 00:00:00 00:00:00 Alcohol intake 2021-02-08 2021-02-08 3.57 /d [facility] 00:00:00 00:00:00 History of Social 2021-02-08 2021-02-08 [facility] function 00:00:00 00:00:00 Cigarettes smoked 2021-02-08 2021-02-08 [facility] current (pack per 00:00:00 00:00:00 day) - Reported Cigarette pack-years 2021-02-08 2021-02-08 [facility] 00:00:00 00:00:00 Sex Ass[birth year] At [birth year] [facility] 00:00:00 00:00:00 Smoking Status Start Date Stop Date Source Heavy Tobacco Smoker [facility] Practice Former Smoker 2022-10-23 00:00:00 2022-10-23 00:00:00 Common S pirit - [facility] Ce nter Current Smoker 2022-03-03 00:00:00 Common Spiri t - [facility] Ce nter Medications Ordered Filled Start Stop Current Ordering Indication Dosage Frequency Signature Comments Components Source Medication Medication Date Date Medication? Clinician (SIG) Name Name carvedilol Yes 1 (one) UT (Coreg) 6-21 time each Health 12.5 MG 14:25: day at the tablet 47 same time. rosuvastati Yes UT n (Crestor) 03-02 Health 40 MG 00:00: tablet 00 metoprolol Yes UT tartrate 02-27 Health (Lopressor) 00:00: 50 MG 00 tablet pantoprazol Yes UT e 02-27 Health (ProtoNix) 00:00: 40 MG EC 00 tablet cholecalcif Yes Q24H daily. Meth kobi sundar, 5-18 st vitamin D3, 16:12: Hospit a 50 mcg 25 l (2,000 unit) capsule capsule lisinopriL- Yes Q24H daily. Meth kobi hydrochloro 5-[address] thiazide 16:12: Hospita (PRINZIDE) 25 l 20-12.5 mg per tablet bimatoprost Yes Q24H daily. Meth kobi (Lumigan) 5-18 st 0.01 % 16:12: Hospita ophthalmic 25 l drops multivit Yes multivitam Met hodi with 5-[address] minerals/patrica 16:12: Hospit a tein 25 l (MULTIVITAM IN 50 PLUS ORAL) ferrous Yes Q24H daily. Methodi sulfate 325 5-18 st (65 FE) MG 16:12: Hospita tablet 25 l aspirin 81 2021-0 Yes Q24H daily. Metho di mg chewable 5-18 st tablet 16:12: Hospita 25 l cholecalcif 2021-0 Yes Q24H daily. Meth kobi sundar, 5-18 st vitamin D3, 16:12: Hospit a 50 mcg 25 l (2,000 unit) capsule capsule lisinopriL- 2021-0 Yes Q24H daily. Meth kobi hydrochloro 5-[address] thiazide 16:12: Hospita (PRINZIDE) 25 l 20-12.5 mg per tablet bimatoprost 2021-0 Yes Q24H daily. Meth kobi (Lumigan) 5-18 st 0.01 % 16:12: Hospita ophthalmic 25 l drops multivit 2021-0 Yes multivitam Met hodi with 5-[address] minerals/patrica 16:12: Hospit a tein 25 l (MULTIVITAM IN 50 PLUS ORAL) ferrous 2021-0 Yes Q24H daily. Methodi sulfate 325 5-18 st (65 FE) MG 16:12: Hospita tablet 25 l aspirin 81 2021-0 Yes Q24H daily. Metho di mg chewable 5-18 st tablet 16:12: Hospita 25 l cholecalcif 2021-0 Yes Q24H daily. Meth kobi sundar, 5-18 st vitamin D3, 16:12: Hospit a 50 mcg 25 l (2,000 unit) capsule capsule lisinopriL- 2021-0 Yes Q24H daily. Meth kobi hydrochloro 5-[address] thiazide 16:12: Hospita (PRINZIDE) 25 l 20-12.5 mg per tablet bimatoprost 2021-0 Yes Q24H daily. Meth kobi (Lumigan) 5-18 st 0.01 % 16:12: Hospita ophthalmic 25 l drops multivit 2021-0 Yes multivitam Met hodi with 5-[address] minerals/patrica 16:12: Hospit a tein 25 l (MULTIVITAM IN 50 PLUS ORAL) ferrous 2021-0 Yes Q24H daily. Methodi sulfate 325 5-18 st (65 FE) MG 16:12: Hospita tablet 25 l aspirin 81 2021-0 Yes Q24H daily. Metho di mg chewable 5-18 st tablet 16:12: Hospita 25 l aspirin 81 2020-0 Yes 1 (one) UT MG chewable 5-18 time each Hea lth tablet 00:00: day at the 00 same time. bimatoprost 2020-0 Yes 1 (one) UT (Lumigan) 5-18 time each Healt h 0.01 % 00:00: day at the ophthalmic 00 same time. solution Cholecalcif 2020-0 Yes 1 (one) UT sundar 5-18 time each Health (Vitamin 00:00: day at the D-3) 2000 00 same time. unit capsule ferrous 2020-0 Yes 1 (one) UT sulfate 325 5-18 time each Hea lth (65 Fe) MG 00:00: day at the tablet 00 same time. simvastatin 2020-0 Yes Method i (ZOCOR) 40 5-16 st mg tablet 00:00: Hospita 00 l simvastatin 2020-0 Yes Method i (ZOCOR) 40 5-16 st mg tablet 00:00: Hospita 00 l simvastatin 2020-0 Yes Method i (ZOCOR) 40 5-16 st mg tablet 00:00: Hospita 00 l clopidogreL 2020-0 Yes 75mg QD Take 75 mg Methodi (PLAVIX) 75 3-[address] mg tablet 00:00: daily. Hospit a 00 l clopidogreL 2020-0 Yes 75mg QD Take 75 mg [facility] (PLAVIX) 75 3-[address] mg tablet 00:00: daily. Hospit a 00 l clopidogreL 2020-0 Yes 75mg QD Take 75 mg [facility] (PLAVIX) 75 3-[address] mg tablet 00:00: daily. Hospit a 00 l clopidogrel 2020-0 Yes 75mg QD Take 75 mg UT (Plavix) 75 3-29 by mouth 1 He alth MG tablet 00:00: (one) time 00 each day. Multivitami Multivitami 2019- No Multivitam n Adults - n Adults - 2-27 in Adults 00:00: - 00 Multivitami Multivitami 2019- No Multivitam n Adults - n Adults - 2-27 in Adults 00:00: - 00 Multivitami Multivitami 2019- No Multivitam n Adults - n Adults - 2-27 in Adults 00:00: - 00 Multivitami Multivitami 2019-1 No Multivitam n Adults - n Adults - 2-27 in Adults 00:00: - 00 Multivitami Multivitami 2019-1 No Multivitam n Adults - n Adults - 2-27 in Adults 00:00: - 00 Multivitami Multivitami 2019-1 No Multivitam n Adults - n Adults - 2-27 in Adults 00:00: - 00 Multivitami Multivitami 2019-1 No Multivitam n Adults - n Adults - 2-27 in Adults 00:00: - 00 Multivitami Multivitami 2019-1 No Multivitam n Adults - n Adults - 2-27 in Adults 00:00: - 00 Multivitami Multivitami 2019-1 No Multivitam n Adults - n Adults - 2-27 in Adults 00:00: - 00 Multivitami Multivitami 2019-1 No Multivitam n Adults - n Adults - 2-27 in Adults 00:00: - 00 Multivitami Multivitami 2019-1 No Multivitam n Adults - n Adults - 2-27 in Adults 00:00: - 00 Multivitami Multivitami 2019-1 No Multivitam n Adults - n Adults - 2-27 in Adults 00:00: - 00 Multivitami Multivitami 2019-1 No Multivitam n Adults - n Adults - 2-27 in Adults 00:00: - 00 Multiple 2019-1 Yes as UT Vitamins-Mi 2-27 directed Heal nerals 00:00: Orally (Multivitam 00 in Adults) tablet carvediloL 2010-0 Yes Q24H daily. Metho di (COREG) 03-02 st 12.5 MG 00:00: Hospita tablet 00 l carvediloL 2010-0 Yes Q24H daily. Metho di (COREG) 03-02 st 12.5 MG 00:00: Hospita tablet 00 l carvediloL 2010-0 Yes Q24H daily. Metho di (COREG) 03-02 st 12.5 MG 00:00: Hospita tablet 00 l multivitami multivitami No multivitam [place] n 1 daily n 1 daily in 1 daily Family Practic e simvastatin simvastatin No 1 Q1D [facility] 40 mg 40 mg n 40 mg Family tablet Take tablet Take tablet Practic 1 tablet 1 tablet Take 1 e every day every day tablet by oral by oral every day route for route for by oral 90 days. 90 days. route for 90 days. Vitamin D3 Vitamin D3 No 1capsul Q1D Vitamin D3 Village 50 mcg 50 mcg e(s) 50 mcg Family (2,000 (2,000 (2,000 Practic unit) unit) unit) e capsule capsule capsule Take 1 Take 1 Take 1 capsule capsule capsule every day every day every day by oral by oral by oral route. route. route. Ferrous Ferrous No 1{table QD Ferrous Sulfate 325 Sulfate 325 t} Sulfate (65 Fe) MG (65 Fe) MG 325 (65 Fe) MG Furosemide Furosemide No 1{table QD Furosemide 20 MG 20 MG t} 20 MG Lisinopril Lisinopril No Lisinopril 10 MG 10 MG 10 MG Pantoprazol Pantoprazol No 1{table QD Pantoprazo e Sodium 40 e Sodium 40 t} le Sodium MG MG 40 MG Aspir-81 81 Aspir-81 81 No 1{table QD Aspir-81 MG MG t} 81 MG Lisinopril- Lisinopril- No 1{table QD Lisinopril hydroCHLORO hydroCHLORO t} -hydroCHLO thiazide thiazide ROthiazide 20-12.5 MG 20-12.5 MG 20-12.5 MG Clopidogrel Clopidogrel No Clopidogre Bisulfate Bisulfate l 75 MG 75 MG Bisulfate 75 MG Rosuvastati Rosuvastati No Rosuvastat n Calcium n Calcium in Calcium 40 MG 40 MG 40 MG Metoprolol Metoprolol No Metoprolol Tartrate 50 Tartrate 50 Tartrate MG MG 50 MG Vitamin D Vitamin D No 1{capsu QD Vitamin D 50 MCG 50 MCG le} 50 MCG (1999) (1999) (1999) Lumigan Lumigan No QD Lumigan 0.01 % 0.01 % 0.01 % Gabapentin Gabapentin No 1{table TID Gabapentin 600 MG 600 MG t} 600 MG Aspir-81 81 Aspir-81 81 No 1{table QD Aspir-81 MG MG t} 81 MG Furosemide Furosemide No 1{table QD Furosemide 20 MG 20 MG t} 20 MG Lisinopril Lisinopril No Lisinopril 10 MG 10 MG 10 MG Ferrous Ferrous No 1{table QD Ferrous Sulfate 325 Sulfate 325 t} Sulfate (65 Fe) MG (65 Fe) MG 325 (65 Fe) MG Metoprolol Metoprolol No Metoprolol Tartrate 50 Tartrate 50 Tartrate MG MG 50 MG Clopidogrel Clopidogrel No 1{table QD Clopidogre Bisulfate Bisulfate t} l 75 MG 75 MG Bisulfate 75 MG Lumigan Lumigan No QD Lumigan 0.01 % 0.01 % 0.01 % Pantoprazol Pantoprazol No 1{table QD Pantoprazo e Sodium 40 e Sodium 40 t} le Sodium MG MG 40 MG Rosuvastati Rosuvastati No Rosuvastat n Calcium n Calcium in Calcium 40 MG 40 MG 40 MG Gabapentin Gabapentin No 1{table TID Gabapentin 600 MG 600 MG t} 600 MG Vitamin D Vitamin D No 1{capsu QD Vitamin D 50 MCG 50 MCG le} 50 MCG (1999) (1999) (1999) Aspir-81 81 Aspir-81 81 No 1{table QD Aspir-81 MG MG t} 81 MG Ferrous Ferrous No 1{table QD Ferrous Sulfate 325 Sulfate 325 t} Sulfate (65 Fe) MG (65 Fe) MG 325 (65 Fe) MG Metoprolol Metoprolol No Metoprolol Tartrate 50 Tartrate 50 Tartrate MG MG 50 MG Lisinopril Lisinopril No Lisinopril 10 MG 10 MG 10 MG Vitamin D Vitamin D No 1{capsu QD Vitamin D 50 MCG 50 MCG le} 50 MCG (1999) (1999) (1999) Furosemide Furosemide No 1{table QD Furosemide 20 MG 20 MG t} 20 MG Lumigan Lumigan No QD Lumigan 0.01 % 0.01 % 0.01 % Pantoprazol Pantoprazol No 1{table QD Pantoprazo e Sodium 40 e Sodium 40 t} le Sodium MG MG 40 MG Rosuvastati Rosuvastati No Rosuvastat n Calcium n Calcium in Calcium 40 MG 40 MG 40 MG Gabapentin Gabapentin No 1{table TID Gabapentin 600 MG 600 MG t} 600 MG Clopidogrel Clopidogrel No 1{table QD Clopidogre Bisulfate Bisulfate t} l 75 MG 75 MG Bisulfate 75 MG Ferrous Ferrous No 1{table QD Ferrous Sulfate 325 Sulfate 325 t} Sulfate (65 Fe) MG (65 Fe) MG 325 (65 Fe) MG Clopidogrel Clopidogrel No 1{table QD Clopidogre Bisulfate Bisulfate t} l 75 MG 75 MG Bisulfate 75 MG Aspir-81 81 Aspir-81 81 No 1{table QD Aspir-81 MG MG t} 81 MG Pantoprazol Pantoprazol No 1{table QD Pantoprazo e Sodium 40 e Sodium 40 t} le Sodium MG MG 40 MG Metoprolol Metoprolol No Metoprolol Tartrate 50 Tartrate 50 Tartrate MG MG 50 MG Vitamin D Vitamin D No 1{capsu QD Vitamin D 50 MCG 50 MCG le} 50 MCG (1999) (1999) (1999) Trae Larkin No QD Lumgabrielle 0.01 % 0.01 % 0.01 % Lisinopril Lisinopril No Lisinopril 10 MG 10 MG 10 MG Rosuvastati Rosuvastati No Rosuvastat n Calcium n Calcium in Calcium 40 MG 40 MG 40 MG Metoprolol Metoprolol No 1{table BID Metoprolol Tartrate 50 Tartrate 50 t_with_ Tartrate MG MG food} 50 MG Lisinopril- Lisinopril- No 1{table QD Lisinopril hydroCHLORO hydroCHLORO t} -hydroCHLO thiazide thiazide ROthiazide 20-12.5 MG 20-12.5 MG 20-12.5 MG Gabapentin Gabapentin No 1{table TID Gabapentin 600 MG 600 MG t} 600 MG Furosemide Furosemide No 1{table QD Furosemide 20 MG 20 MG t} 20 MG Ferrous Ferrous No 1{table QD Ferrous Sulfate 325 Sulfate 325 t} Sulfate (65 Fe) MG (65 Fe) MG 325 (65 Fe) MG Clopidogrel Clopidogrel No 1{table QD Clopidogre Bisulfate Bisulfate t} l 75 MG 75 MG Bisulfate 75 MG Aspir-81 81 Aspir-81 81 No 1{table QD Aspir-81 MG MG t} 81 MG Pantoprazol Pantoprazol No 1{table QD Pantoprazo e Sodium 40 e Sodium 40 t} le Sodium MG MG 40 MG Metoprolol Metoprolol No Metoprolol Tartrate 50 Tartrate 50 Tartrate MG MG 50 MG Vitamin D Vitamin D No 1{capsu QD Vitamin D 50 MCG 50 MCG le} 50 MCG (1999) (1999) (1999) Trae Larkin No QD Juan Franciscoigan 0.01 % 0.01 % 0.01 % Lisinopril Lisinopril No Lisinopril 10 MG 10 MG 10 MG Rosuvastati Rosuvastati No Rosuvastat n Calcium n Calcium in Calcium 40 MG 40 MG 40 MG Metoprolol Metoprolol No 1{table BID Metoprolol Tartrate 50 Tartrate 50 t_with_ Tartrate MG MG food} 50 MG Lisinopril- Lisinopril- No 1{table QD Lisinopril hydroCHLORO hydroCHLORO t} -hydroCHLO thiazide thiazide ROthiazide 20-12.5 MG 20-12.5 MG 20-12.5 MG Gabapentin Gabapentin No 1{table TID Gabapentin 600 MG 600 MG t} 600 MG Furosemide Furosemide No 1{table QD Furosemide 20 MG 20 MG t} 20 MG Metoprolol Metoprolol No Metoprolol Tartrate 50 Tartrate 50 Tartrate MG MG 50 MG Pantoprazol Pantoprazol No 1{table QD Pantoprazo e Sodium 40 e Sodium 40 t} le Sodium MG MG 40 MG Lisinopril- Lisinopril- No 1{table QD Lisinopril hydroCHLORO hydroCHLORO t} -hydroCHLO thiazide thiazide ROthiazide 20-12.5 MG 20-12.5 MG 20-12.5 MG Ferrous Ferrous No 1{table QD Ferrous Sulfate 325 Sulfate 325 t} Sulfate (65 Fe) MG (65 Fe) MG 325 (65 Fe) MG Clopidogrel Clopidogrel No Clopidogre Bisulfate Bisulfate l 75 MG 75 MG Bisulfate 75 MG Lumigan Lumigan No QD Lumigan 0.01 % 0.01 % 0.01 % Furosemide Furosemide No 1{table QD Furosemide 20 MG 20 MG t} 20 MG Vitamin D Vitamin D No 1{capsu QD Vitamin D 50 MCG 50 MCG le} 50 MCG (1999 UT) (1999 UT) (1999) Lisinopril Lisinopril No Lisinopril 10 MG 10 MG 10 MG Rosuvastati Rosuvastati No Rosuvastat n Calcium n Calcium in Calcium 40 MG 40 MG 40 MG Clopidogrel Clopidogrel No 1{table QD Clopidogre Bisulfate Bisulfate t} l 75 MG 75 MG Bisulfate 75 MG Metoprolol Metoprolol No 1{table BID Metoprolol Tartrate 50 Tartrate 50 t_with_ Tartrate MG MG food} 50 MG Gabapentin Gabapentin No 1{table TID Gabapentin 600 MG 600 MG t} 600 MG Aspir-81 81 Aspir-81 81 No 1{table QD Aspir-81 MG MG t} 81 MG Pantoprazol Pantoprazol No 1{table QD Pantoprazo e Sodium 40 e Sodium 40 t} le Sodium MG MG 40 MG Metoprolol Metoprolol No Metoprolol Tartrate 50 Tartrate 50 Tartrate MG MG 50 MG Furosemide Furosemide No 1{table QD Furosemide 20 MG 20 MG t} 20 MG Lisinopril Lisinopril No Lisinopril 10 MG 10 MG 10 MG Aspir-81 81 Aspir-81 81 No 1{table QD Aspir-81 MG MG t} 81 MG Lumigan Lumigan No QD Lumigan 0.01 % 0.01 % 0.01 % Gabapentin Gabapentin No 1{table TID Gabapentin 600 MG 600 MG t} 600 MG Rosuvastati Rosuvastati No Rosuvastat n Calcium n Calcium in Calcium 40 MG 40 MG 40 MG Vitamin D Vitamin D No 1{capsu QD Vitamin D 50 MCG 50 MCG le} 50 MCG (1999) (1999) (1999) Lisinopril- Lisinopril- No 1{table QD Lisinopril hydroCHLORO hydroCHLORO t} -hydroCHLO thiazide thiazide ROthiazide 20-12.5 MG 20-12.5 MG 20-12.5 MG Clopidogrel Clopidogrel No Clopidogre Bisulfate Bisulfate l 75 MG 75 MG Bisulfate 75 MG Ferrous Ferrous No 1{table QD Ferrous Sulfate 325 Sulfate 325 t} Sulfate (65 Fe) MG (65 Fe) MG 325 (65 Fe) MG Lumigan Lumigan No QD Lumigan 0.01 % 0.01 % 0.01 % Ferrous Ferrous No 1{table QD Ferrous Sulfate 325 Sulfate 325 t} Sulfate (65 Fe) MG (65 Fe) MG 325 (65 Fe) MG Lisinopril Lisinopril No Lisinopril 10 MG 10 MG 10 MG Gabapentin Gabapentin No 1{table TID Gabapentin 600 MG 600 MG t} 600 MG Furosemide Furosemide No 1{table QD Furosemide 20 MG 20 MG t} 20 MG Aspir-81 81 Aspir-81 81 No 1{table QD Aspir-81 MG MG t} 81 MG Rosuvastati Rosuvastati No Rosuvastat n Calcium n Calcium in Calcium 40 MG 40 MG 40 MG Vitamin D Vitamin D No 1{capsu QD Vitamin D 50 MCG 50 MCG le} 50 MCG (1999) (1999) (1999) Lisinopril- Lisinopril- No 1{table QD Lisinopril hydroCHLORO hydroCHLORO t} -hydroCHLO thiazide thiazide ROthiazide 20-12.5 MG 20-12.5 MG 20-12.5 MG Clopidogrel Clopidogrel No Clopidogre Bisulfate Bisulfate l 75 MG 75 MG Bisulfate 75 MG Metoprolol Metoprolol No Metoprolol Tartrate 50 Tartrate 50 Tartrate MG MG 50 MG Pantoprazol Pantoprazol No 1{table QD Pantoprazo e Sodium 40 e Sodium 40 t} le Sodium MG MG 40 MG Ferrous Ferrous No 1{table QD Ferrous Sulfate 325 Sulfate 325 t} Sulfate (65 Fe) MG (65 Fe) MG 325 (65 Fe) MG Furosemide Furosemide No 1{table QD Furosemide 20 MG 20 MG t} 20 MG Lisinopril Lisinopril No Lisinopril 10 MG 10 MG 10 MG Pantoprazol Pantoprazol No 1{table QD Pantoprazo e Sodium 40 e Sodium 40 t} le Sodium MG MG 40 MG Aspir-81 81 Aspir-81 81 No 1{table QD Aspir-81 MG MG t} 81 MG Lisinopril- Lisinopril- No 1{table QD Lisinopril hydroCHLORO hydroCHLORO t} -hydroCHLO thiazide thiazide ROthiazide 20-12.5 MG 20-12.5 MG 20-12.5 MG Clopidogrel Clopidogrel No Clopidogre Bisulfate Bisulfate l 75 MG 75 MG Bisulfate 75 MG Rosuvastati Rosuvastati No Rosuvastat n Calcium n Calcium in Calcium 40 MG 40 MG 40 MG Metoprolol Metoprolol No Metoprolol Tartrate 50 Tartrate 50 Tartrate MG MG 50 MG Vitamin D Vitamin D No 1{capsu QD Vitamin D 50 MCG 50 MCG le} 50 MCG (1999 UT) (1999 UT) (1999) Trae Larkin No QD Lumigan 0.01 % 0.01 % 0.01 % Gabapentin Gabapentin No 1{table TID Gabapentin 600 MG 600 MG t} 600 MG Ferrous Ferrous No 1{table QD Ferrous Sulfate 325 Sulfate 325 t} Sulfate (65 Fe) MG (65 Fe) MG 325 (65 Fe) MG Furosemide Furosemide No 1{table QD Furosemide 20 MG 20 MG t} 20 MG Lisinopril Lisinopril No Lisinopril 10 MG 10 MG 10 MG Pantoprazol Pantoprazol No 1{table QD Pantoprazo e Sodium 40 e Sodium 40 t} le Sodium MG MG 40 MG Aspir-81 81 Aspir-81 81 No 1{table QD Aspir-81 MG MG t} 81 MG Lisinopril- Lisinopril- No 1{table QD Lisinopril hydroCHLORO hydroCHLORO t} -hydroCHLO thiazide thiazide ROthiazide 20-12.5 MG 20-12.5 MG 20-12.5 MG Clopidogrel Clopidogrel No Clopidogre Bisulfate Bisulfate l 75 MG 75 MG Bisulfate 75 MG Rosuvastati Rosuvastati No Rosuvastat n Calcium n Calcium in Calcium 40 MG 40 MG 40 MG Metoprolol Metoprolol No Metoprolol Tartrate 50 Tartrate 50 Tartrate MG MG 50 MG Vitamin D Vitamin D No 1{capsu QD Vitamin D 50 MCG 50 MCG le} 50 MCG (1999) (1999) (1999) Lumigan Lumigan No QD Lumigan 0.01 % 0.01 % 0.01 % Gabapentin Gabapentin No 1{table TID Gabapentin 600 MG 600 MG t} 600 MG Carvedilol Carvedilol No BID Carvedilol 25 MG 25 MG 25 MG Rosuvastati Rosuvastati No Rosuvastat n Calcium n Calcium in Calcium 40 MG 40 MG 40 MG Vitamin D Vitamin D No 1{capsu QD Vitamin D 50 MCG 50 MCG le} 50 MCG (1999) (1999) (1999) Lisinopril- Lisinopril- No 1{table BID Lisinopril hydroCHLORO hydroCHLORO t} -hydroCHLO thiazide thiazide ROthiazide 20-12.5 MG 20-12.5 MG 20-12.5 MG Carvedilol Carvedilol No 1{table BID Carvedilol 12.5 MG 12.5 MG t_with_ 12.5 MG food} Ferrous Ferrous No 1{table QD Ferrous Sulfate 325 Sulfate 325 t} Sulfate (65 Fe) MG (65 Fe) MG 325 (65 Fe) MG Aspir-81 81 Aspir-81 81 No 1{table QD Aspir-81 MG MG t} 81 MG Carvedilol Carvedilol No 1{table BID Carvedilol 12.5 MG 12.5 MG t_with_ 12.5 MG food} Vitamin D Vitamin D No 1{capsu QD Vitamin D 50 MCG 50 MCG le} 50 MCG (1999) (1999) (1999) Ferrous Ferrous No 1{table QD Ferrous Sulfate 325 Sulfate 325 t} Sulfate (65 Fe) MG (65 Fe) MG 325 (65 Fe) MG Lisinopril- Lisinopril- No 1{table BID Lisinopril hydroCHLORO hydroCHLORO t} -hydroCHLO thiazide thiazide ROthiazide 20-12.5 MG 20-12.5 MG 20-12.5 MG Carvedilol Carvedilol No BID Carvedilol 25 MG 25 MG 25 MG Rosuvastati Rosuvastati No Rosuvastat n Calcium n Calcium in Calcium 40 MG 40 MG 40 MG Aspir-81 81 Aspir-81 81 No 1{table QD Aspir-81 MG MG t} 81 MG Ferrous Ferrous No 1{table QD Ferrous Sulfate 325 Sulfate 325 t} Sulfate (65 Fe) MG (65 Fe) MG 325 (65 Fe) MG Furosemide Furosemide No 1{table QD Furosemide 20 MG 20 MG t} 20 MG Lisinopril Lisinopril No Lisinopril 10 MG 10 MG 10 MG Pantoprazol Pantoprazol No 1{table QD Pantoprazo e Sodium 40 e Sodium 40 t} le Sodium MG MG 40 MG Aspir-81 81 Aspir-81 81 No 1{table QD Aspir-81 MG MG t} 81 MG Lisinopril- Lisinopril- No 1{table QD Lisinopril hydroCHLORO hydroCHLORO t} -hydroCHLO thiazide thiazide ROthiazide 20-12.5 MG 20-12.5 MG 20-12.5 MG Clopidogrel Clopidogrel No Clopidogre Bisulfate Bisulfate l 75 MG 75 MG Bisulfate 75 MG Rosuvastati Rosuvastati No Rosuvastat n Calcium n Calcium in Calcium 40 MG 40 MG 40 MG Metoprolol Metoprolol No Metoprolol Tartrate 50 Tartrate 50 Tartrate MG MG 50 MG Vitamin D Vitamin D No 1{capsu QD Vitamin D 50 MCG 50 MCG le} 50 MCG (1999 UT) (1999 UT) (1999) Lumigan Lumigan No QD Lumigan 0.01 % 0.01 % 0.01 % Gabapentin Gabapentin No 1{table TID Gabapentin 600 MG 600 MG t} 600 MG aspirin 81 aspirin 81 No 1 Q1D aspirin 81 [place] mg chewable mg chewable mg F amily tablet Chew tablet Chew chewable Pract[facility] 1 tablet 1 tablet tablet e every day every day Chew 1 by oral by oral tablet route. route. every day by oral route. carvedilol carvedilol No 1 Q1D carvedilol [place] 12.5 mg 12.5 mg 12.5 mg Family tablet Take tablet Take tablet Practic 1 tablet 1 tablet Take 1 e every day every day tablet by oral by oral every day route for route for by oral 90 days. 90 days. route for 90 days. clopidogrel clopidogrel No 1 Q1D clopidogre [facility] 75 mg 75 mg l 75 [...] route. lisinopril lisinopril No 1 Q1D lisinopril [facility] 20 20 20 Family mg-hydrochl mg-hydrochl mg-hydroch Practic orothiazide orothiazide lorothiazi e 12.5 mg 12.5 mg de 12.5 mg tablet Take tablet Take tablet 1 tablet 1 tablet Take 1 every day every day tablet by oral by oral every day route. route. by oral route. Lumigan Lumigan No 1drop(s Q1D Lumigan Tangela barbara 0.01 % eye 0.01 % eye ) 0.01 % eye Family drops Apply drops Apply drops Practic 1 drop 1 drop Apply 1 e every day every day drop every by by day by ophthalmic ophthalmic ophthalmic route for route for route for 90 days. 90 days. 90 days. Immunizations Ordered Immunization Filled Immunization Date Status Commen ts Source Name Name COVID-19 Vaccine COVID-19 Vaccine 2021-05-26 [facility]pleted [facility] 11:54:00 - [facility] COVID-19 Vaccine COVID-19 Vaccine 2021-05-26 Completed [facility] ([facility]) 11:54:00 - [facility] COVID-19 Vaccine COVID-19 Vaccine 2021-05-26 Completed [facility] ([facility]) 11:54:00 - [facility] COVID-19 Vaccine COVID-19 Vaccine 2021-05-26 Completed [facility] ([facility]) 11:54:00 - [facility] COVID-19 Vaccine COVID-19 Vaccine 2021-05-26 Com[facility] ([facility] 11:54:00 [facility] COVID-19 Vaccine COVID-19 Vaccine 2021-05-26 Completed [facility] ([facility] 11:54:00 [facility] COVID-19 Vaccine COVID-19 Vaccine 2021-05-26 [facility] ([facility] 11:54:00 [facility] COVID-19 Vaccine COVID-19 Vaccine 2021-05-26 Completed [facility] ([facility] 11:54:00 [facility] COVID-19 Vaccine COVID-19 Vaccine 2021-05-26 Completed [facility] ([facility] 11:54:00 [facility] COVID-19 Vaccine COVID-19 Vaccine 2021-05-26 Completed [facility] ([facility] 11:54:00 [facility] COVID-19 Vaccine COVID-19 Vaccine 2021-05-26 Completed [facility] ([facility]) 11:54:00 [facility] pneumococcal pneumococcal 2019-06-24 Completed [facility] yfn polysaccharide PPV23 polysaccharide PPV23 00:00:00 Practice Pneumovax (PPSV23) Pneumovax (PPSV23) 2018-09-24 [facility]pleted [facility] Pneumovax (PPSV23) Pneumovax (PPSV23) 2018-09-24 [facility]pleted [facility]00 [facility] Pneumovax (PPSV23) Pneumovax (PPSV23) 2018-09-24 [facility]pleted [facility]00 [facility] Pneumovax (PPSV23) Pneumovax (PPSV23) 2018-09-24 [facility]pleted [facility] Pneumovax (PPSV23) Pneumovax (PPSV23) 2018-09-24 [facility]pleted [facility] Pneumovax (PPSV23) Pneumovax (PPSV23) 2018-09-24 [facility]pleted [facility]00 [facility] Pneumovax (PPSV23) Pneumovax (PPSV23) 2018-09-24 Completed [facility]00 [facility] Pneumovax (PPSV23) Pneumovax (PPSV23) 2018-09-24 Completed [facility]00 [facility] Pneumovax (PPSV23) Pneumovax (PPSV23) 2018-09-24 [facility]pleted [facility]00 [facility] Pneumovax (PPSV23) Pneumovax (PPSV23) 2018-09-24 Completed [facility]00 [facility] Pneumovax (PPSV23) Pneumovax (PPSV23) 2018-09-24 Completed [facility]:00 [facility] pneumococcal pneumococcal 2018-06-24 Completed [facility] yfn conjugate PCV 13 conjugate PCV 13 00:00:00 Pr actice Vital Signs Vital Name Observation Time Observation Value Comments Source height 2022-10-23 11:20:00 66 [in_i] [facility] weight 2022-10-23 11:20:00 161.0 [lb_av] [facility] temperature 2022-10-23 11:20:00 97.3 [degF] [facility] bmi 2022-10-23 11:20:00 25.98 kg/m2 [facility] oximetry 2022-10-23 11:20:00 98 % [facility] respiratory rate 2022-10-23 11:20:00 18 /min Comm on [facility] blood pressure 2022-10-23 11:20:00 134 mm[Hg] [facility] - systolic [facility] blood pressure 2022-10-23 11:20:00 75 mm[Hg] [facility] diastolic [facility] height 2022-06-21 11:00:00 66 [in_i] [facility] weight 2022-06-21 11:00:00 170.9 [lb_av] Common [facility] temperature 2022-06-21 11:00:00 97.4 [degF] Common [facility] bmi 2022-06-21 11:00:00 27.58 kg/m2 Common S [facility] oximetry 2022-06-21 11:00:00 97 % Common [facility] respiratory rate 2022-06-21 11:00:00 16 /min Comm on [facility] blood pressure 2022-06-21 11:00:00 129 mm[Hg] Common [facility] - systolic [facility] blood pressure 2022-06-21 11:00:00 64 mm[Hg] Common [facility] - diastolic [facility] height 2022-06-21 11:00:00 66 [in_i] Common [facility] weight 2022-06-21 11:00:00 170.9 [lb_av] [facility] temperature 2022-06-21 11:00:00 97.4 [degF] [facility] 2022-06-21 11:00:00 27.58 kg/m2 [facility] oximetry 2022-06-21 11:00:00 97 % [facility] respiratory rate 2022-06-21 11:00:00 16 /min Comm on [facility] blood pressure 2022-06-21 11:00:00 129 mm[Hg] [facility] - systolic [facility] blood pressure 2022-06-21 11:00:00 64 mm[Hg] [facility] - diastolic [facility] height 2022-02-22 08:40:00 66 [in_i] Common [facility] weight 2022-02-22 08:40:00 164.3 [lb_av] [facility] temperature 2022-02-22 08:40:00 97.5 [degF] Common S [facility]irit - [facility] 2022-02-22 08:40:00 26.52 kg/m2 Common [facility] oximetry 2022-02-22 08:40:00 96 % Common [facility] respiratory rate 2022-02-22 08:40:00 17 /min Comm on [facility] blood pressure 2022-02-22 08:40:00 136 mm[Hg] Common [facility] - systolic [facility] blood pressure 2022-02-22 08:40:00 76 mm[Hg] [facility] - diastolic [facility] height 2021-11-24 08:20:00 66 [in_i] Common [facility] weight 2021-11-24 08:20:00 170.0 [lb_av] [facility] temperature 2021-11-24 08:20:00 97.1 [degF] Common [facility] bmi 2021-11-24 08:20:00 27.44 kg/m2 Common [facility] oximetry 2021-11-24 08:20:00 98 % Common [facility] respiratory rate 2021-11-24 08:20:00 16 /min Comm on [facility] blood pressure 2021-11-24 08:20:00 137 mm[Hg] Common [facility] - systolic [facility] blood pressure 2021-11-24 08:20:00 72 mm[Hg] Common [facility] - diastolic [facility] height 2021-08-25 09:30:00 66 [in_i] Common [facility] weight 2021-08-25 09:30:00 170.7 [lb_av] [facility] temperature 2021-08-25 09:30:00 97.9 [degF] Common [facility] bmi 2021-08-25 09:30:00 27.55 kg/m2 [facility] oximetry 2021-08-25 09:30:00 97 % [facility] respiratory rate 2021-08-25 09:30:00 16 /min Comm on [facility] blood pressure 2021-08-25 09:30:00 132 mm[Hg] [facility] - systolic [facility] blood pressure 2021-08-25 09:30:00 75 mm[Hg] Common [facility] - diastolic [facility] height 2021-08-25 08:40:00 66 [in_i] [facility] weight 2021-08-25 08:40:00 170.7 [lb_av] Common [facility] temperature 2021-08-25 08:40:00 97.9 [degF] Common S [facility] bmi 2021-08-25 08:40:00 27.55 kg/m2 [facility] oximetry 2021-08-25 08:40:00 97 % Common [facility] respiratory rate 2021-08-25 08:40:00 16 /min Comm on [facility] blood pressure 2021-08-25 08:40:00 132 mm[Hg] Common [facility] - systolic [facility] blood pressure 2021-08-25 08:40:00 75 mm[Hg] Common [facility] - diastolic [facility] height 2021-03-21 11:40:00 66 [in_i] Common S [facility] weight 2021-03-21 11:40:00 157.3 [lb_av] Common [facility] temperature 2021-03-21 11:40:00 97.6 [degF] Common [facility] bmi 2021-03-21 11:40:00 25.39 kg/m2 Common [facility] oximetry 2021-03-21 11:40:00 97 % Common [facility] respiratory rate 2021-03-21 11:40:00 16 /min Comm on [facility] blood pressure 2021-03-21 11:40:00 148 mm[Hg] [facility] - systolic [facility] blood pressure 2021-03-21 11:40:00 75 mm[Hg] [facility] - diastolic [facility] Heart rate 2021-03-14 14:19:00 82 [facility] 2021-03-14 14:19:00 [facility] 2021-03-14 14:19:00 [facility]308 [facility] Systolic blood 2021-03-14 14:19:00 140 mm[facility]Hg] [facility] Diastolic blood 2021-03-14 14:19:00 60 mm[facility]Hg[facility] BP Diastolic 2019-11-27 00:00:00 68 mm[Hg] [facility] Height 2019-11-27 00:00:00 64 [in_i] [facility] BMI (Body Mass Index) 2019-11-27 00:00:00 27.6 kg/m2 [facility] BP Systolic 2019-11-27 00:00:00 142 mm[Hg] [facility] Body Weight 2019-11-27 00:00:00 160.6 [lb_av] [facility] Procedures Procedure Date / Time Performed Performing Clinician [facility] e Procedure on Carotid 2014-01-26 00:00:00 [facility] Practice Abdomen Surgery 2010-01-19 00:00:00 [facility] ly Procedure Practice Plan of Care Planned Activity Planned Date Details Comments Source Future Scheduled Test 2023-02-03 COVID-19 VACCINE (#1) [facility] 18:46:04 [code = COVID-19 VACCINE (#1)] Future Scheduled Test 2023-02-03 Hepatitis C screening [facility] 18:46:04 (procedure) [code = 017536711] Future Scheduled Test 2023-02-03 COLONOSCOPY SCREENING [facility] 18:46:04 [code = COLONOSCOPY SCREENING] Future Scheduled Test 2023-02-03 SHINGLES VACCINES (1 [facility] 18:46:04 of 2) [code = SHINGLES VACCINES (1 of 2)] Future Scheduled Test 2023-02-03 INFLUENZA VACCINE [facility] 18:46:04 [code = INFLUENZA VACCINE] Future Scheduled Test 2023-02-03 65+ PNEUMOCOCCAL [facility] 18:46:04 VACCINE (3 - PPSV23 if available, else PCV20) [code = 65+ PNEUMOCOCCAL VACCINE (3 - PPSV23 if available, else PCV20)] Future Scheduled Test 2022-12-28 COVID-19 VACCINE (#1) [facility] 23:47:37 [code = COVID-19 VACCINE (#1)] Future Scheduled Test 2022-12-28 Hepatitis C screening [facility] 23:47:37 (procedure) [code = 825922491] Future Scheduled Test 2022-12-28 COLONOSCOPY SCREENING [facility] 23:47:37 [code = COLONOSCOPY SCREENING] Future Scheduled Test 2022-12-28 SHINGLES VACCINES (1 [facility] 23:47:37 of 2) [code = SHINGLES VACCINES (1 of 2)] Future Scheduled Test 2022-12-28 INFLUENZA VACCINE [facility] 23:47:37 [code = INFLUENZA VACCINE] Future Scheduled Test 2022-12-28 65+ PNEUMOCOCCAL [facility] 23:47:37 VACCINE (3 - PPSV23 if available, else PCV20) [code = 65+ PNEUMOCOCCAL VACCINE (3 - PPSV23 if available, else PCV20)] Future Scheduled Test 2022-09-07 COVID-19 VACCINE (#1) [facility] 17:05:29 [code = COVID-19 VACCINE (#1)] Future Scheduled Test 2022-09-07 Hepatitis C screening [facility] 17:05:29 (procedure) [code = [id number]] Future Scheduled Test 2022-09-07 COLONOSCOPY SCREENING [facility] 17:05:29 [code = COLONOSCOPY SCREENING] Future Scheduled Test 2022-09-07 SHINGLES VACCINES (1 [facility] 17:05:29 of 2) [code = SHINGLES VACCINES (1 of 2)] Future Scheduled Test 2022-09-07 INFLUENZA VACCINE [facility] 17:05:29 [code = INFLUENZA VACCINE] Future Scheduled Test 2022-09-07 65+ PNEUMOCOCCAL [facility] 17:05:29 VACCINE (3 - PPSV23 if available, else PCV20) [code = 65+ PNEUMOCOCCAL VACCINE (3 - PPSV23 if available, else PCV20)] Instructions [facility] Family Practice Encounters Start End Encounter Admission Attending Care Care Encounter Source Date/Time Date/Time Type Type Clinicians Facility Department ID 2022-10-20 Outpatient Albarado, STLMLC STLMLC [id number] Common 15:40:00 Marcell 95477 [facility] 2022-10-19 Outpatient Albarado, STLMLC STLMLC [id number] Common 13:38:01 Marcell 63818 [facility] 2021-11-24 Outpatient Albarado, STLMLC STLMLC [id number] Common 08:10:01 [facility] 2021-11-23 Outpatient Albarado, STLMLC STLMLC [id number] Common 11:17:00 [facility] 2021-10-19 Outpatient Albarado, STLMLC STLMLC Common 13:36:44 Marcell [id number] [facility] 2021-10-19 Outpatient Albarado, STLMLC STLMLC [id number] Common 13:19:18 Marcell 10538 [facility] 2021-10-19 Outpatient Albarado, STLMLC STLMLC Common 12:26:32 Marcell [id number] [facility] 2021-10-19 Outpatient STLMLC STLMLC Common 12:25:56 90311 [facility] 2021-10-19 Outpatient STLMLC STLMLC [id number] Common 12:25:33 [id number] [facility] 2021-10-19 Outpatient Millender, STLMLC STLMLC Common 11:26:25 Harleen 12069 [facility] 2021-10-19 Outpatient Millender, STLMLC STLMLC [id number] Common 11:25:16 Harleen 81948 [facility] 2021-10-19 Outpatient Millender, STLMLC STLMLC [id number] 11:24:53 Harleen 70129 [facility] 2021-03-26 Outpatient HET, [facility] [id number] [place] 01:03:58 [facility] 2022-10-23 2022-10-23 OFFICE STLMLC STLMLC [id number] [facility] 00:00:00 00:00:00 [facility] PT - [facility]I LEVEL 4 [facility] 2022-06-21 2022-06-21 SUB ANNUAL STLMLC STLMLC [id number] Common 00:00:00 00:00:00 [facility] WELLNESS - CHI VISIT [facility] 2022-06-21 2022-06-21 OFFICE STLMLC STLMLC [id number] [facility] 00:00:00 00:00:00 [facility] PT - [facility] L[facility] 4 [facility] 2022-03-03 2022-03-03 (TEL) STLMLC STLMLC [id number] [facility] 00:00:00 00:00:00 [facility] 2022-02-22 2022-02-22 OFFICE STLMLC STLMLC [id number] [facility] 00:00:00 00:00:00 [facility] EST[facility] PT - [facility] L[facility] 4 [facility] 2021-11-24 2021-11-24 OFFICE STLMLC STLMLC [id number] [facility] 00:00:00 00:00:00 [facility] PT - [facility] L[facility] 4 [facility] 2021-08-25 2021-08-25 OFFICE STLMLC STLMLC [id number] [facility] 00:00:00 00:00:00 [facility] PT - [facility] L[facility] 4 [facility] 2021-08-25 2021-08-25 SUB ANNUAL STLMLC STLMLC [id number] Common 00:00:00 00:00:00 [facility] WELLNESS - [facility]I V[facility] 2021-07-13 2021-07-13 (TEL) STLMLC STLMLC [id number] [facility] 00:00:00 00:00:00 [facility] 2021-06-27 2021-06-27 (TEL) STLMLC STLMLC [id number] [facility] 00:00:00 00:00:00 [facility] 2021-05-04 2021-05-04 Outpatient STLMLC STLMLC [id number] Common 00:00:00 00:00:00 [facility] 2021-05-01 2021-05-01 Outpatient STLMLC STLMLC [id number] Common 00:00:00 00:00:00 [facility] 2021-03-21 2021-03-21 OFFICE STLMLC STLMLC [id number] Co [facility] 00:00:00 00:00:00 VISIT [facility] LEVEL [facility] 2021-03-14 2021-03-14 Office DARLING Chavez [facility] [id number] [place] 09:04:34 10:07:07 Visit [facility] [id number] H [facility] [id number] 2021-02-28 2021-02-28 Outpatient STLMLC STLMLC [id number] Common 00:00:00 00:00:00 [facility] 2021-02-08 2021-02-09 Outpatient [facility] [id number] [place] 00:00:00 00:00:00 , CLAU [address] 2021-02-03 2021-02-03 Outpatient [facility] [id number] [place] 00:00:00 00:00:00 , CLAU [address] 2021-01-31 2021-01-31 Outpatient STLMLC STLMLC [id number] Common 00:00:00 00:00:00 [facility] 2021-01-14 2021-01-14 Outpatient STLMLC STLMLC [id number] Common 00:00:00 00:00:00 [facility] 2020-10-21 2020-10-21 Outpatient STLMLC STLMLC [id number] Common 00:00:00 00:00:00 [facility] 2020-02-28 2020-02-28 Outpatient Deshaun-Mbayo VFP VFP 796 100 [place] 09:38:00 09:38:00 _A_AH [id number] [facility] 2020-02-28 2020-02-28 Outpatient Deshaun-Mbayo VFP VFP 796 100 [facility] 09:38:00 09:38:00 _A_AH [id number] Family Practic e 2020-01-19 2020-01-19 Outpatient Deshaun-Mbayo VFP VFP 796 [facility] 08:58:00 08:58:00 _A_AH [id number] Family Practic e 2019-12-02 2019-12-02 Outpatient Deshaun-Mbayo VFP VFP 796 [facility] 11:51:00 11:51:00 _A_AH [id number] Family Practic e 2019-12-01 2019-12-01 Outpatient Deshaun-Mbayo VFP VFP 796 [facility] 12:28:00 12:28:00 _A_AH [id number] Family Practic e 2019-11-27 2019-11-27 Outpatient Deshaun-Mbayo VFP VFP 796 [facility] 10:53:00 10:53:00 _A_AH 01774 Family Practic e 2019-11-27 2019-11-27 Winter F VFP - [id number] [facility] 00:00:00 00:00:00 Lonny SALT GRINDER: [address] - [facility], Suite [email or web address]_ e [facility], [facility], [facility] [address] , Ph. 2019-11-26 2019-11-26 Outpatient Deshaun-Mbayo VFP VFP 796 [facility] 11:34:00 11:34:00 _A_AH [id number] Family Practic e 2019-11-20 2019-11-20 Outpatient Deshaun-Mbayo VFP VFP 796 [facility] 02:09:00 02:09:00 _A_AH 67977 Family Practic e Results Test Description Test Time Test Comments Results Result Comments Source Lipid Panel With LDL/HDL Ratio 2022-05-17 00:00:00 Test Item Value Reference Range Interpretation Comme nts Cholesterol, Total (test code 166 mg/dL See_Comment [Automated message] The system = 2093-3) which generated this result transmitted ref erence range: 100-199 mg/dL. The reference range was not u sed to interpret this result as normal/abnormal. Triglycerides (test code = 83 mg/dL See_Comment [Automated message] The system 1591-8) which generated this result transmitted ref erence range: 0-149 mg/dL. Th e reference range was not used to interpret this result as naheed l/abnormal. HDL Cholesterol (test code = 79 mg/dL See_Comment [Automated message] The system 5-9) which generated this result transmitted ref erence range: >39 mg/dL. The refe rence range was not used to int erpret this result as naheed l/abnormal. PTH, [id number] 00:00:00 Test Item Value Reference Range Interpretation Comments PTH, Intact (test 20 pg/mL See_Comment [Automate d message] The code = 2731-8) system which generated this result tra nsmitted reference range : 15-65 pg/mL. The refe rence range was not u sed to interpret this result as normal/abnormal . Calcium, Ionized, [id number] 00:00:00 Test Item Value Reference Range Interpretation Comments Calcium, Ionized, 5.4 mg/dL See_Comment [Automate d message] The Serum (test code = system [facility] generated 01731-6) this result tra nsmitted reference range : 4.5-5.6 mg/dL. The refe rence range was not u sed to interpret this result as normal/abnormal . Hematopath Consultation, [id number] 00:00:00 Test Item Value Reference Range Interpretation Comments PLTs (test code = 48955-6) A Comments/Recommendations (test code = 58406-9) Pathologist (test code = 52703-9) Hemoglobin [id number] 00:00:00 Test Item Value Reference Range Interpretation Comments Hemoglobin A1c (test 6.2 % See_Comment H [Autom ated message] The code = 4548-4) system which generated this result tra nsmitted reference range : 4.8-5.6 %. The referenc e range was not used to interpret this result as normal/abnormal . Comp. Metabolic Panel (14) (CMP)2022-05-17 00:00:00 Test Item Value Reference Range Interpretation Comments Glucose (test code = 111 mg/dL See_Comment H [Autom ated message] 0915-7) The system ic h generated this result transmitted ref erence range: 65-99 mg /dL. The reference r moon was not used to interpret this result as normal/abnor mal. BUN (test code = 19 mg/dL See_Comment [Automated message] 5654-0) The system [email or web address] generated this result transmitted ref erence range: 8-27 mg/ dL. The reference r moon was not used to interpret this result as normal/abnor mal. Creatinine (test code 1.19 mg/dL See_Comment [Auto mated message] = 2160-0) The system [email or web address] generated this result transmitted ref erence range: 0.76-1.2 7 mg/dL. The refe rence range was not u sed to interpret this result as normal/abnor mal. BUN/Creatinine Ratio 16 10-24 (test code = 3097-3) Sodium (test code = 138 mmol/L See_Comment [Automa dario message] 9331-2) The system [email or web address] generated this result transmitted ref erence range: 134-144 mmol/L. The ref erence range was not u sed to interpret this result as normal/abnor mal. Potassium (test code = 5.0 mmol/L See_Comment [Aut omated message] 2350-3) The system [email or web address] generated this result transmitted ref erence range: 3.5-5.2 mmol/L. The ref erence range was not u sed to interpret this result as normal/abnor mal. Chloride (test code = 97 mmol/L See_Comment [Auto mated message] 3465-0) The system [email or web address] generated this result transmitted ref erence range: 96-106 m mol/L. The reference r moon was not used to interpret this result as normal/abnor mal. Carbon Dioxide, Total 29 mmol/L See_Comment [Auto mated message] (test code = 2027-9) The [facility] tem which generated this result transmitted ref erence range: 20-29 mm ol/L. The reference r moon was not used to interpret this result as normal/abnor mal. Calcium (test code = 10.3 mg/dL See_Comment H [Autom ated message] 57028-2) The system [email or web address] generated this result transmitted ref erence range: 8.6-10.2 mg/dL. The refe rence range was not u sed to interpret this result as normal/abnor mal. Protein, Total (test 7.5 g/dL See_Comment [Autom ated message] code = 9785-2) The system [facility] generated this result transmitted ref erence range: 6.0-8.5 g/dL. The reference r moon was not used to interpret this result as normal/abnor mal. Albumin (test code = 4.9 g/dL See_Comment H [Autom ated message] 1751-7) The system [facility] generated this result transmitted ref erence range: 3.8-4.8 g/dL. The reference r moon was not used to interpret this result as normal/abnor mal. Globulin, Total (test 2.6 g/dL See_Comment [Auto mated message] code = 20813-3) The system [facility] generated this result transmitted ref erence range: 1.5-4.5 g/dL. The reference r moon was not used to interpret this result as normal/abnor mal. A/G Ratio (test code = 1.9 1.2-2.2 1759-0) Bilirubin, Total (test 0.3 mg/dL See_Comment [Aut omated message] code = 1974-2) The system [facility] generated this result transmitted ref erence range: 0.0-1.2 mg/dL. The reference r moon was not used to interpret this result as normal/abnor mal. Alkaline Phosphatase 65 IU/L See_Comment [Autom ated message] (test code = 6768-6) The [facility] tem which generated this result transmitted ref erence range: 44-121 I U/L. The reference r moon was not used to interpret this result as normal/abnor mal. AST (SGOT) (test code 22 IU/L See_Comment [Auto mated message] = 1920-8) The system [facility] generated this result transmitted ref erence range: 0-40 IU/ L. The reference range was not used to int erpret this result as normal/abnormal . ALT (SGPT) (test code 20 IU/L See_Comment [Auto mated message] = 6322-6) The system [facility] generated this result transmitted ref erence range: 0-44 IU/ L. The reference range was not used to int erpret this result as normal/abnormal . Vitamin D, [id number] 00:00:00 Test Item Value Reference Range Interpretation Comments Vitamin D, 83.0 ng/mL See_Comment [Automated mes mavis] 25-Hydroxy (test The system which code = 1989-3) generated thi s result transmitted ref erence range: 30.0-100 .0 ng/mL. The refe rence range was not u sed to interpret this result as normal/abnor mal.
[2023-02-03 19:05] LABS: Absolute Lymphocytes (CBC) 1.1 K/uL (0.7-4.9); Hematocrit 32.1 % (39.6-49.0); MCV 92.8 fL (80-100); RBC Red Blood Cell Count 3.46 M/uL (4.33-5.43)
[2023-02-03 19:23] LABS: Magnesium 1.9 mg/dL (1.6-2.4); Potassium 3.8 mEq/L (3.5-5.1); Troponin High Sensitivity 4.7 pg/mL (<58.9)
--- NOTE | 2023-02-03 19:37 | RAD REPORT ---
EXAM DESCRIPTION: RAD - Chest Single View - 02/03/2023 7:28 pm CLINICAL HISTORY: CHEST PAIN COMPARISON: Chest Single View dated 02/17/2021; Chest Pa And Lat (2 Views) dated 01/26/2021; CHEST SING LE VIEW dated 01/19/2010 FINDINGS: Lines: Sternotomy Lungs: No evidence of edema or pneumonia. Pleural: No significant pleural effusions or pneumothorax. Cardiac: The heart size is within normal limits. Mediastinum: Within normal limits. Bones: No acute fractures. Other: None IMPRESSION: No acute cardiopulmonary disease.
--- NOTE | 2023-02-03 21:42 | EDPHYS ---
Physician Documentation [facility] Name: Omero Fink Age: 67 yrs Sex: Male : 1955 Arrival Date: 02/03/2023 Time: 18:30 Bed 19 Private MD: Per [facility] ED Physician Terrence Villagomez HPI: 02/03 20:25 This 67 yrs old Male presents to ER via Ambulatory with complaints of Chest Pain. 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 - Social history:: Smoking status: Patient denies any tobacco usage or history of. ROS: 20:25 Constitutional: Negative for fever, chills, and weight loss. kb 20:25 Cardiovascular: Positive for chest pain, Negative for edema, orthopnea, palpitations, paroxysmal nocturnal dyspnea. 20:25 All other systems are negative. Exam: 20:25 Constitutional: This is a well developed, well nourished patient who is awake, alert, kb and in no acute distress. Head/Face: Normocephalic, atraumatic. ENT: Moist Mucous membranes Cardiovascular: Regular rate and rhythm with a normal S1 and S2. No gallops, murmurs, or rubs. No pulse deficits. Respiratory: Respirations even and unlabored. No increased work of breathing. Talking in full sentences Abdomen/GI: Soft, non-tender. No distention Skin: Warm, dry with normal turgor. Normal color. MS/ Extremity: Pulses equal, no cyanosis. Neurovascular intact. Full, normal range of motion. Neuro: Awake and alert, GCS 15, oriented to person, place, time, and situation. Moves all extremities. Normal gait. 20:25 ECG was reviewed by the Attending Physician. Vital Signs: 18:36 BP 174 / 84; Pulse 84; Resp 18 S; Temp 98(TE); Pulse Ox 96% on R/A; Weight 74.84 kg aa5 (R); Height 5 ft. 4 in. (R); 19:02 BP 174 / 81; Pulse 79; Resp 16; Pulse Ox 96% on R/A; eh3 20:00 BP 139 / 67; Pulse 63; Resp 17; Pulse Ox 96% on R/A; eh3 21:00 BP 166 / 84; Pulse 61; Resp 18; Pulse Ox 97% on R/A; eh3 22:04 BP 182 / 87; Pulse 63; Resp 17 S; Pulse Ox 97% on R/A; lg3 18:36 Body Mass Index 28.32 (74.84 kg, 162.56 cm) aa5 MDM: 18:37 Patient medically screened. bs3 20:25 Data reviewed: vital signs, nurses notes. kb 20:25 Differential diagnosis: abnormal EKG, acute myocardial infarction, coronary artery kb disease chest wall pain. Consideration of Admission/Observation Escalation of care including admission/observation considered. considered admission for chest pain, but pain has been ongoing for 2 days and currently gone. Initial trop normal. will repeat troponin and discharge if remains normal. 21:41 Counseling: I had a detailed discussion with the patient and/or guardian regarding: the kb historical points, exam findings, and any diagnostic results supporting the discharge/admit diagnosis, lab results, radiology results, the need for outpatient follow up, a family practitioner, to return to the emergency department if symptoms worsen or persist or if there are any questions or concerns that arise at home. 02/03 18:43 Order name: Basic Metabolic Panel; Complete Time: 19:41 kb 02/03 18:43 Order name: CBC with Diff; Complete Time: 19:41 kb 02/03 18:43 Order name: Magnesium; Complete Time: 19:41 kb 02/03 18:43 Order name: NT PRO-BNP; Complete Time: 19:41 kb 02/03 18:43 Order name: Troponin HS; Complete Time: 19:41 kb 02/03 20:56 Order name: Troponin High Sensitivity; Complete Time: 21:41 kb 02/03 18:43 Order name: XRAY Chest (1 view); Complete Time: 19:41 kb 02/03 18:43 Order name: EKG; Complete Time: 18:44 kb 02/03 18:38 Order name: EKG - Nurse/Tech; Complete Time: 19:04 bs3 02/03 18:43 Order name: Cardiac monitoring; Complete Time: 18:48 kb 02/03 18:43 Order name: EKG - Nurse/Tech; Complete Time: 18:47 kb 02/03 18:43 Order name: IV Saline Lock; Complete Time: 19:01 kb 02/03 18:43 Order name: Labs collected and sent; Complete Time: 19:01 kb 02/03 18:43 Order name: O2 Per Protocol; Complete Time: 18:48 kb 02/03 18:43 Order name: O2 Sat Monitoring; Complete Time: 18:48 kb EC:25 Rate is 78 beats/min. Rhythm is regular. QRS [place] is Normal. TX interval is normal at kb 182 msec. QRS interval is normal at 76 msec. QT interval is normal at 414 msec. Administered Medications: 20:40 Drug: GI Cocktail without - (Maalox PO Suspension 30 ml, Lidocaine Mucous eh3 Membrane Liquid 2 % 15 ml) Route: PO; 21:16 Follow up: Response: No adverse reaction 3 20:40 Drug: Pantoprazole IVP 40 mg Route: IVP; Site: left antecubital; eh3 21:16 Follow up: Response: No adverse reaction 3 Disposition Summary: 02/03/23 21:41 Discharge Ordered Location: Home kb Condition: Stable kb Diagnosis - Chest pain, unspecified kb Followup: kb - With: Emergency Department - When: As needed - Reason: Worsening of condition Followup: kb - With: Private Physician - When: 2 - 3 days - Reason: Recheck today's complaints, Continuance of care, Re-evaluation by your physician Discharge Instructions: - Discharge Summary Sheet kb - Nonspecific Chest Pain, Adult, [id number] kb Forms: - Medication Reconciliation Form kb - Thank You Letter kb - Antibiotic Education kb - Prescription Opioid Use kb Signatures: Dispatcher [employer] Francheska Arnold, CARMEN JOINER-Naomie Tam, RN RN aa5 Nemo Wagner RN RN eh3 Terrence Villagomez MD MD bs3
--- NOTE | 2023-02-03 21:42 | ER ---
Nurse's Notes [facility] Name: Omero Fink Age: 67 yrs Sex: Male : 1955 Arrival Date: 02/03/2023 Time: 18:30 Bed 19 Private MD: Marcell Albarado Diagnosis: Chest pain, unspecified Presentation: 02/03 18:36 Chief complaint: Patient states: chest pain that began 2 days ago, pt states "I just aa5 kept waking up every 2 hours last night". 18:36 Coronavirus screen: At this time, the client does not indicate any symptoms associated aa5 with coronavirus-19. Ebola Screen: Patient denies travel to an Ebola-affected area in the 21 days before illness onset. Initial Sepsis Screen: Does the patient meet any 2 criteria? No. Patient's initial sepsis screen is negative. Does the patient have a suspected source of infection? No. Patient's initial sepsis screen is negative. Risk Assessment: Do you want to hurt yourself or someone else? Patient reports no desire to harm self or others. Onset of symptoms was January 2023. 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 - Social history:: Smoking status: Patient denies any tobacco usage or history of. Screenin:02 [facility] ED Fall Risk Assessment (Adult) Score/Fall Risk Level 0 - 2 = Low Risk. Abuse eh3 screen: Denies threats or abuse. Denies injuries from another. Nutritional screening: No deficits noted. Tuberculosis screening: No symptoms or risk factors identified. Assessment: 19:02 General: Appears in no apparent distress. comfortable, Behavior is calm, cooperative, eh3 appropriate for age. Pain: Complains of pain in chest Pain does not radiate. Pain currently is 3 out of 10 on a pain scale. Quality of pain is described as squeezing, Pain began 2-3 days ago. Neuro: Level of Consciousness is awake, alert, obeys commands, Oriented to person, place, time, situation. Cardiovascular: Capillary refill < 3 seconds Patient's skin is warm and dry. Respiratory: Airway is patent Respiratory effort is even, unlabored, Respiratory pattern is regular, symmetrical. GI: Abdomen is round non-distended. : No signs and/or symptoms were reported regarding the genitourinary system. EENT: No signs and/or symptoms were reported regarding the EENT system. Derm: Skin is pink, warm \\T\\ dry. Musculoskeletal: No signs and/or symptoms reported regarding the musculoskeletal system. 20:00 Reassessment: Patient appears in no apparent distress at this time. Patient and/or eh3 family updated on plan of care and expected duration. Pain level reassessed. Patient is alert, oriented x 3, equal unlabored respirations, skin warm/dry/pink. 21:00 Reassessment: Patient appears in no apparent distress at this time. Patient and/or eh3 family updated on plan of care and expected duration. Pain level reassessed. Patient is alert, oriented x 3, equal unlabored respirations, skin warm/dry/pink. 22:04 Reassessment: Patient appears in no apparent distress at this time. No changes from lg3 previously documented assessment. Patient and/or family updated on plan of care and expected duration. Pain level reassessed. Patient is alert, oriented x 3, equal unlabored respirations, skin warm/dry/pink. Vital Signs: 18:36 BP 174 / 84; Pulse 84; Resp 18 S; Temp 98(TE); Pulse Ox 96% on R/A; Weight 74.84 kg aa5 (R); Height 5 ft. 4 in. (R); 19:02 BP 174 / 81; Pulse 79; Resp 16; Pulse Ox 96% on R/A; eh3 20:00 BP 139 / 67; Pulse 63; Resp 17; Pulse Ox 96% on R/A; eh3 21:00 BP 166 / 84; Pulse 61; Resp 18; Pulse Ox 97% on R/A; eh3 22:04 BP 182 / 87; Pulse 63; Resp 17 S; Pulse Ox 97% on R/A; lg3 18:36 Body Mass Index 28.32 (74.84 kg, 162.56 cm) aa5 ED Course: 18:33 Patient arrived in ED. mr 18:33 Marcell Albarado, is Private Physician. mr 18:36 Arm band placed on Patient placed in an exam room, on a stretcher. aa5 18:39 Franches[facility]heng [facility]C [facility] kb 18:39 Terrence Villagomez MD is Attending Physician. kb 18:40 Nemo Wagner, FREEMAN is Primary Nurse. eh3 18:44 Triage completed. aa5 18:45 Inserted saline lock: 20 gauge in left antecubital area, using aseptic technique. Blood eh3 collected. 19:02 Patient has correct armband on for positive identification. Placed in gown. Bed in low eh3 position. Call light in reach. Side rails up X2. Client placed on continuous cardiac and pulse oximetry monitoring. NIBP monitoring applied. Door closed. Noise minimized. Lights dimmed. 19:02 Patient maintains SpO2 saturation greater than 95% on room air. eh3 19:30 XRAY Chest (1 view) In Process Unspecified. EDMS 21:15 Report given to FREEMAN Carr. eh3 21:16 Troponin High Sensitivity Sent. eh3 22:05 No provider procedures requiring assistance completed. IV discontinued, intact, lg3 bleeding controlled, No redness/swelling at site. Pressure dressing applied. Administered Medications: 20:40 Drug: GI Cocktail without - (Maalox PO Suspension 30 ml, Lidocaine Mucous eh3 Membrane Liquid 2 % 15 ml) Route: PO; 21:16 Follow up: Response: No adverse reaction eh3 20:40 Drug: Pantoprazole IVP 40 mg Route: IVP; Site: left antecubital; eh3 21:16 Follow up: Response: No adverse reaction eh3 Medication: 22:06 VIS not applicable for this client. lg3 Outcome: 21:41 Discharge ordered by . kb 22:05 Discharged to home ambulatory. lg3 22:05 Condition: stable 22:05 Discharge instructions given to patient, Instructed on discharge instructions, follow up and referral plans. 22:06 Patient left the ED. lg3 Signatures: Dispatcher [employer] EDMS Francheska Zheng FNP-C FNP-Luisana Lea Delatorre, Naomie, RN RN aa5 Lilly Staples, FREEMAN RN lg3 Nemo Wagner, FREEMAN RN 3
[2023-02-03 22:35] VITALS: TEMP 98
[2023-02-03 22:41] VITALS: O2SAT 97
[2023-02-03 22:43] VITALS: BP 182/87
--- NOTE | 2023-02-05 11:45 | EKG ---
Test Date: 2023-02-03 Test Time: 18:44:42 High Pressure Firer: CELE MEASUREMENT RESULTS: Intervals: Rate: 78 HI: 182 QRSD: 76 QT: 364 QTc: 414 [place]: P: 67 HI: 182 QRS: 84 T: 70 INTERPRETIVE STATEMENTS: Normal sinus rhythm Normal ECG Compared to ECG 02/17/2021 23:00:41 No significant changes Electronically Signed On 02-05-23 11:41:44 CDT by John Allison
== END 2023-02-03 22:06 | disposition home or self-care (01) ==
LOC: ER 18:30
DX: R07.89 Other chest pain (principal); I10 Essential (primary) hypertension; I48.91 Unspecified atrial fibrillation; Z95.1 Presence of aortocoronary bypass graft
CPT/HCPCS: 36415; 71045; 80048; 83735; 83880; 84484; 85025; 93005; 96374; 99285

== ENCOUNTER 2023-05-06 09:29 | Emergency (ER) | payer OTHER ==
--- OUTSIDE RECORDS SUMMARY | 2023-05-06 09:44 | XMS REPORT | Continuity of Care Document ---
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 [in_i] Common [facility] weight 2021-08-25 09:30:00 170.7 [lb_av] Common [facility] temperature 2021-08-25 09:30:00 97.9 [degF] Common S pirit [facility] bmi 2021-08-25 09:30:00 27.55 kg/m2 [facility] oximetry 2021-08-25 09:30:00 97 % [facility] respiratory rate 2021-08-25 09:30:00 16 /min Comm on [facility] blood pressure 2021-08-25 09:30:00 132 mm[Hg] Common [facility] - systolic [facility] blood pressure 2021-08-25 09:30:00 75 mm[Hg] Common [facility] - diastolic [facility] height 2021-08-25 08:40:00 66 [in_i] Common [facility] weight 2021-08-25 08:40:00 170.7 [lb_av] [facility] temperature 2021-08-25 08:40:00 97.9 [degF] [facility] 2021-08-25 08:40:00 27.55 kg/m2 Common S [facility] oximetry 2021-08-25 08:40:00 97 % Common [facility] respiratory rate 2021-08-25 08:40:00 16 /min Comm on [facility] blood pressure 2021-08-25 08:40:00 132 mm[Hg] [facility] blood pressure 2021-08-25 08:40:00 75 mm[Hg] [facility] height 2021-03-21 11:40:00 66 [in_i] Common S [facility] weight 2021-03-21 11:40:00 157.3 [lb_av] [facility] temperature 2021-03-21 11:40:00 97.6 [degF] Common S [facility]irit [facility] bmi 2021-03-21 11:40:00 25.39 kg/m2 Common S [facility] oximetry 2021-03-21 11:40:00 97 % Common S [facility] respiratory rate 2021-03-21 11:40:00 16 /min Comm on [facility] blood pressure 2021-03-21 11:40:00 148 mm[Hg] [facility] blood pressure 2021-03-21 11:40:00 75 mm[Hg] [facility] Systolic blood 2021-03-14 14:19:00 140 mm[Hg] [facility] Diastolic blood 2021-03-14 14:19:00 60 mm[Hg] [facility] Heart rate 2021-03-14 14:19:00 82 [facility]min [facility] temperature 2021-03-14 14:19:00 [facility].72 [facility] 2021-03-14 14:19:00 [facility]308 [facility] BP Diastolic 2019-11-27 00:00:00 68 mm[Hg] [facility] Height 2019-11-27 00:00:00 64 [in_i] [facility] BMI (Body Mass 2019-11-27 00:00:00 27.6 kg/m2 [facility] Family Index) Practice BP Systolic 2019-11-27 00:00:00 142 mm[Hg] [facility] Body Weight 2019-11-27 00:00:00 160.6 [lb_av] [facility] Procedures Procedure Date / Time Performed Performing Clinician Tobin COWART ECG ROUTINE & 2023-02-28 14:06:30 Diana Damon [facility] RHYTHM STRIP Medical Branch EXTERNAL PROVIDER - 2023-02-12 05:01:00 [facility] Procedure on Carotid 2014-01-26 00:00:[address] [facility] Body Practice Abdomen [facility] 2010-01-19 [facility] Plan [facility] Care Planned Activity Planned Date Details Comments Source Future Scheduled Test 2023-05-[address] [facility] 09:34:11 malignant neoplasm of colon (procedure) [code = 936689009] Future Scheduled Test 2023-05-06 [facility] 09:34:11 malignant neoplasm of colon (procedure) [code = 773476976] Future Scheduled Test 2023-05-06 [facility] 09:34:11 malignant neoplasm of colon (procedure) [code = 279452702] Future Scheduled Test 2023-05-06 COVID-19 VACCINE (#1) [facility] 09:34:11 [code = COVID-19 VACCINE (#1)] Future Scheduled Test 2023-05-06 Hepatitis C screening [facility] 09:34:11 (procedure) [code = 051915860] Future Scheduled Test 2023-05-06 [facility] 09:34:11 malignant neoplasm of colon (procedure) [code = 620370913] Future Scheduled Test 2023-05-06 [facility] 09:34:11 malignant neoplasm of colon (procedure) [code = 272475937] Future Scheduled Test 2023-05-06 SHINGLES VACCINES (1 [facility] 09:34:11 of 2) [code = SHINGLES VACCINES (1 of 2)] Future Scheduled Test 2023-05-06 INFLUENZA VACCINE [facility] 09:34:11 [code = INFLUENZA VACCINE] Future Scheduled Test 2023-05-06 65+ PNEUMOCOCCAL Me [facility] 09:34:11 VACCINE (3 - PPSV23 if available, else PCV20) [code = 65+ PNEUMOCOCCAL VACCINE (3 - PPSV23 if available, else PCV20)] Future Scheduled Test 2023-02-03 COVID-19 VACCINE (#1) [facility] 18:46:04 [code = COVID-19 VACCINE (#1)] Future Scheduled Test 2023-02-03 Hepatitis C screening [facility] 18:46:04 (procedure) [code = 839731010] Future Scheduled Test 2023-02-03 COLONOSCOPY SCREENING [facility] 18:46:04 [code = COLONOSCOPY SCREENING] Future Scheduled Test 2023-02-03 SHINGLES VACCINES (1 [facility] 18:46:04 of 2) [code = SHINGLES VACCINES (1 of 2)] Future Scheduled Test 2023-02-03 INFLUENZA VACCINE [facility] 18:46:04 [code = INFLUENZA VACCINE] Future Scheduled Test 2023-02-03 65+ PNEUMOCOCCAL [facility] 18:46:04 VACCINE (3 - PPSV23 if available, else PCV20) [code = 65+ PNEUMOCOCCAL VACCINE (3 - PPSV23 if available, else PCV20)] Future Scheduled Test 2022-12-28 COVID-19 VACCINE (#1) [facility] 23:47:37 [code = COVID-19 VACCINE (#1)] Future Scheduled Test 2022-12-28 Hepatitis C screening [facility] 23:47:37 (procedure) [code = 965188515] Future Scheduled Test 2022-12-28 COLONOSCOPY SCREENING [facility] 23:47:37 [code = COLONOSCOPY SCREENING] Future Scheduled Test 2022-12-28 SHINGLES VACCINES (1 [facility] 23:47:37 of 2) [code = SHINGLES VACCINES (1 of 2)] Future Scheduled Test 2022-12-28 INFLUENZA VACCINE [facility] 23:47:37 [code = INFLUENZA VACCINE] Future Scheduled Test 2022-12-28 65+ PNEUMOCOCCAL [facility] 23:47:37 VACCINE (3 - PPSV23 if available, else PCV20) [code = 65+ PNEUMOCOCCAL VACCINE (3 - PPSV23 if available, else PCV20)] Future Scheduled Test 2022-09-07 COVID-19 VACCINE (#1) [facility] 17:05:29 [code = COVID-19 VACCINE (#1)] Future Scheduled Test 2022-09-07 Hepatitis C screening [facility] 17:05:29 (procedure) [code = 151167229] Future Scheduled Test 2022-09-07 COLONOSCOPY SCREENING [facility] 17:05:29 [code = COLONOSCOPY SCREENING] Future Scheduled Test 2022-09-07 SHINGLES VACCINES (1 [facility] 17:05:29 of 2) [code = SHINGLES VACCINES (1 of 2)] Future Scheduled Test 2022-09-07 INFLUENZA VACCINE [facility] 17:05:29 [code = INFLUENZA VACCINE] Future Scheduled Test 2022-09-07 65+ PNEUMOCOCCAL [facility] 17:05:29 VACCINE (3 - PPSV23 if available, else PCV20) [code = 65+ PNEUMOCOCCAL VACCINE (3 - PPSV23 if available, else PCV20)] Instructions [facility] Encounters Start End Encounter Admission Attending Care Care Encounter Source Date/Time Date/Time Type Type Clinicians Facility Department ID 2023-02-21 Outpatient Albarado, STLMLC STLMLC Common 10:24:00 Marcell [id number] [facility] 2022-10-20 Outpatient Albarado, STLMLC STLMLC Common 15:40:00 Marcell [facility] 2022-10-19 Outpatient Albarado, STLMLC STLMLC Common 13:38:01 Marcell [facility] 2021-11-24 Outpatient Albarado, STLMLC STLMLC Common 08:10:01 Marcell [facility] 2021-11-23 Outpatient Albarado, STLMLC STLMLC Common 11:17:00 Marcell [facility] 2021-10-19 Outpatient Albarado, STLMLC STLMLC Common 13:36:44 Marcell [id number] [facility] 2021-10-19 Outpatient Albarado, STLMLC STLMLC Common 13:19:18 Marcell [id number] [facility] 2021-10-19 Outpatient Albarado, STLMLC STLMLC Common 12:26:32 Marcell [id number] [facility] 2021-10-19 Outpatient STLMLC STLMLC Common 12:25:56 [id number] [facility] 2021-10-19 Outpatient STLMLC STLMLC Common 12:25:33 [id number] [facility] 2021-10-19 Outpatient Millender, STLMLC STLMLC Common 11:26:25 Harleen [id number] [facility] 2021-10-19 Outpatient Millender, STLMLC STLMLC Common 11:25:16 Harleen [id number] [facility] 2021-10-19 Outpatient Millender, STLMLC STLMLC Common 11:24:53 Harleen [id number] [facility] 2021-03-26 Outpatient HET, [facility] [id number] [place] 01:03:58 [facility] 2023-08-30 2023-08-30 Outpatient R NELSON, [facility] [id number] Univers 11:00:00 11:00:00 DIANA lou o f [facility] 2023-03-07 2023-03-07 [id number] Univers 00:00:00 00:00:00 Salvadorqamar EDWIN [id number] [id number] [phone] [address] 2023-03-05 2023-03-05 [facility]phone [facility] [id number] [id number] Univers 00:00:00 00:00:00 Salvadorqamar EDWIN [id number] [id number] [phone] [address] 2023-02-28 2023-02-28 Nurse Visit, [facility] Nurse [facility] [id number] Univers 10:30:00 10:30:00 Visit Kamron Damonrodolfoqamar EDWIN [id number] [id number] [id number] [address] 2023-02-28 2023-02-28 Office [facility] [id number] Univers 09:40:00 09:40:00 Visit Diana EDWIN [id number] [id number] [phone] [address] 2023-02-28 2023-02-28 [facility] [id number] Univers 09:40:00 09:25:27 DIANA ahmadi f [facility] 2023-02-12 2023-02-12 Orders Doctor ROE [id number] [id number] Univers 00:00:00 00:00:00 Only Unassigned, LUZMA [id number] ity of [place] [facility] [id number] [facility] as [phone] [place] [address] Branch 2022-10-23 2022-10-23 OFFICE STLMLC STLMLC [id number] Co mmon 00:00:00 00:00:00 VISIT Spirit ESTAB PT - CHI LEVEL 4 [facility] 2022-06-21 2022-06-21 SUB ANNUAL STLMLC STLMLC [id number] Common 00:00:00 00:00:00 MCR Spirit WELLNESS - CHI VISIT [facility] 2022-06-21 2022-06-21 OFFICE STLMLC STLMLC [id number] Co mmon 00:00:00 00:00:00 VISIT Spirit ESTAB PT - CHI LEVEL 4 [facility] 2022-03-03 2022-03-03 (TEL) STLMLC STLMLC [id number] Co mmon 00:00:00 00:00:00 Spirit - CHI [facility] 2022-02-22 2022-02-22 OFFICE STLMLC STLMLC [id number] Co mmon 00:00:00 00:00:00 VISIT Spirit ESTAB PT - CHI LEVEL 4 [facility] 2021-11-24 2021-11-24 OFFICE STLMLC STLMLC [id number] Co mmon 00:00:00 00:00:00 VISIT Spirit ESTAB PT - CHI LEVEL 4 [facility] 2021-08-25 2021-08-25 OFFICE STLMLC STLMLC [id number] Co mmon 00:00:00 00:00:00 VISIT Spirit ESTAB PT - CHI LEVEL 4 [facility] 2021-08-25 2021-08-25 SUB ANNUAL STLMLC STLMLC [id number] Common 00:00:00 00:00:00 MCR Spirit WELLNESS - CHI VISIT [facility] 2021-07-13 2021-07-13 (TEL) STLMLC STLMLC [id number] Co mmon 00:00:00 00:00:00 Spirit - CHI [facility] 2021-06-27 2021-06-27 (TEL) STLMLC STLMLC [id number] Co mmon 00:00:00 00:00:00 [facility] 2021-05-04 2021-05-04 Outpatient STLMLC STLMLC [id number] Common 00:00:00 00:00:00 [facility] 2021-05-01 2021-05-01 Outpatient STLMLC STLMLC [id number] Common 00:00:00 00:00:00 [facility] 2021-03-21 2021-03-21 OFFICE STLMLC STLMLC [id number] Co mmon 00:00:00 00:00:00 VISIT [facility] 4 [facility] 2021-03-14 2021-03-14 [facility] [id number] [id number] [place] 09:04:34 10:07:07 Visit [facility] [id number] H [facility] [id number] 3 [id number] 2021-02-28 2021-02-28 Outpatient STLMLC STLMLC [id number] Common 00:00:00 00:00:00 [facility] 2021-02-08 2021-02-09 Outpatient [facility] [id number] [place] 00:00:00 00:00:00 , CLAU [address] 2021-02-03 2021-02-03 [id number] [place] 00:00:00 00:00:00 , CLAU [address] 2021-01-31 2021-01-31 Outpatient STLMLC STLMLC [id number] Common 00:00:00 00:00:00 [facility] 2021-01-14 2021-01-14 Outpatient STLMLC STLMLC [id number] Common 00:00:00 00:00:00 [facility] 2020-10-21 2020-10-21 Outpatient STLMLC STLMLC [id number] Common 00:00:00 00:00:00 [facility] 2020-02-28 2020-02-28 Outpatient Deshaun-Bruce VFP VFP 796 [facility] [place] 09:38:00 09:38:00 _A_AH 89542 Family Practic e 2020-02-28 2020-02-28 Outpatient Deshaun-Mbayo VFP VFP 796 [facility] 09:38:00 09:38:00 _A_AH 95607 Family Practic e 2020-01-19 2020-01-19 Outpatient Deshaun-Mbayo VFP VFP 796 [facility] 08:58:00 08:58:00 _A_AH 63482 Family Practic e 2019-12-02 2019-12-02 Outpatient Deshaun-Mbayo VFP VFP 796 [facility] 11:51:00 11:51:00 _A_AH 11792 Family Practic e 2019-12-01 2019-12-01 Outpatient Deshaun-Mbayo VFP VFP 796 [facility] 12:28:00 12:28:00 _A_AH 70504 Family Practic e 2019-11-27 2019-11-27 Outpatient Deshaun-Mbayo VFP VFP 796 [facility] 10:53:00 10:53:00 _A_AH 27633 Family Practic e 2019-11-27 2019-11-27 Mazin F VFP [place] - [id number] [facility] 00:00:00 00:00:00 Lonny THERMODYNAMICIST: [address] - [facility] tic [facility], [address] [email or web address] [email or web address], [facility] [place], [place] [address] , Ph. 2019-11-26 2019-11-26 Outpatient Deshaun-Mbayo VFP VFP 796 [facility] 11:34:00 11:34:00 _A_AH 55104 Family Practic e 2019-11-20 2019-11-20 Outpatient Deshaun-Mbayo VFP VFP 796 [facility] 02:09:00 02:09:00 _A_AH 11187 Family Practic e Results Test Description Test [...] 83 mg/dL See_Comment [Automated message] The system 0281-8) which generated this result transmitted ref erence range: 0-149 mg/dL. Th e reference range was not used to interpret this result as naheed l/abnormal. HDL Cholesterol (test code = 79 mg/dL See_Comment [Automated message] The system 8465-9) which generated this result transmitted ref erence range: >39 mg/dL. The refe rence range was not used to int erpret this result as naheed l/abnormal. PTH, [id number] 00:00:00 Test Item Value Reference Range Interpretation Comments PTH, Intact (test 20 pg/mL See_Comment [Automate d message] The code = 2731-8) system which generated this result tra nsmitted reference range : 15-65 pg/mL. The refe rence range was not u sed to interpret this result as normal/abnormal . Calcium, Ionized, [id number] 00:00:00 Test Item Value Reference Range Interpretation Comments Calcium, Ionized, 5.4 mg/dL See_Comment [Automate d message] The Serum (test code = system [facility] generated 27445-1) this result tra nsmitted reference range : 4.5-5.6 mg/dL. The refe rence range was not u sed to interpret this result as normal/abnormal . Hematopath Consultation, [id number] 00:00:00 Test Item Value Reference Range Interpretation Comments PLTs (test code = 98340-5) A Comments/Recommendations (test code = 41177-9) Pathologist (test code = 37761-7) Hemoglobin [id number] 00:00:00 Test Item Value Reference Range Interpretation [...] 111 mg/dL See_Comment H [Autom ated message] 4595-7) The system [employer] generated this result transmitted ref erence range: 65-99 mg /dL. The reference r moon was not used to interpret this result as normal/abnor mal. BUN (test code = 19 mg/dL See_Comment [Automated message] 3094-0) The system [employer] generated this result transmitted ref erence range: 8-27 mg/ dL. The reference r moon was not used to interpret this result as normal/abnor mal. Creatinine (test code 1.19 mg/dL See_Comment [Auto mated message] = 2160-0) The system [employer] generated this result transmitted ref erence range: 0.76-1.2 7 mg/dL. The refe rence range was not u sed to interpret this result as normal/abnor mal. BUN/Creatinine Ratio 16 10-24 (test code = 3097-3) Sodium (test code = 138 mmol/L See_Comment [Automa dario message] 9281-2) The system [employer] generated this result transmitted ref erence range: 134-144 mmol/L. The ref erence range was not u sed to interpret this result as normal/abnor mal. Potassium (test code = 5.0 mmol/L See_Comment [Aut omated message] 4023-3) The system [employer] generated this result transmitted ref erence range: 3.5-5.2 mmol/L. The ref erence range was not u sed to interpret this result as normal/abnor mal. Chloride (test code = 97 mmol/L See_Comment [Auto mated message] 0485-0) The system [employer] generated this result transmitted ref erence range: 96-106 m mol/L. The reference r moon was not used to interpret this result as normal/abnor mal. Carbon Dioxide, Total 29 mmol/L See_Comment [Auto mated message] (test code = 2027-9) The s tem which generated this result transmitted ref erence range: 20-29 mm ol/L. The reference r moon was not used to interpret this result as normal/abnor mal. Calcium (test code = 10.3 mg/dL See_Comment H [Autom ated message] 16199-1) The system [facility] generated this result transmitted ref erence range: 8.6-10.2 mg/dL. The refe rence range was not u sed to interpret this result as normal/abnor mal. Protein, Total (test 7.5 g/dL See_Comment [Autom ated message] code = 2885-2) The system [facility] generated this result transmitted ref erence range: 6.0-8.5 g/dL. The reference r moon was not used to interpret this result as normal/abnor mal. Albumin (test code = 4.9 g/dL See_Comment H [Autom ated message] 1751-7) The system [facility] generated this result transmitted ref erence range: 3.8-4.8 g/dL. The reference r moon was not used to interpret this result as normal/abnor mal. Globulin, Total (test 2.6 g/dL See_Comment [Auto mated message] code = 93641-2) The system [facility] generated this result transmitted ref erence range: 1.5-4.5 g/dL. The reference r moon was not used to interpret this result as normal/abnor mal. A/G Ratio (test code = 1.9 1.2-2.2 1759-0) Bilirubin, Total (test 0.3 mg/dL See_Comment [Aut omated message] code = 1974-2) The system [facility] generated this result transmitted ref erence range: 0.0-1.2 mg/dL. The reference r moon was not used to interpret this result as normal/abnor mal. Alkaline Phosphatase 65 IU/L See_Comment [Autom ated message] (test code = 6768-6) The [facility] tem which generated this result transmitted ref erence range: 44-121 I U/L. The reference r moon was not used to interpret this result as normal/abnor mal. AST (SGOT) (test code 22 IU/L See_Comment [Auto mated message] = 1920-8) The system [facility] generated this result transmitted ref erence range: 0-40 IU/ L. The reference range was not used to int erpret this result as normal/abnormal . ALT (SGPT) (test code 20 IU/L See_Comment [Auto mated message] = 1742-6) The system [employer] generated this result transmitted ref erence range: 0-44 IU/ L. The reference range was not used to int erpret this result as normal/abnormal . Vitamin D, [id number] 00:00:00 Test Item Value Reference Range Interpretation Comments Vitamin D, 83.0 ng/mL See_Comment [Automated mes mavis] 25-Hydroxy (test The system which code = 1989-) generated thi s result transmitted ref erence range: 30.0-100 .0 ng/mL. The refe rence range was not u sed to interpret this result as normal/abnor mal.
[2023-05-06 09:55] LABS: Absolute Lymphocytes (CBC) 1.2 K/uL (0.7-4.9); Hematocrit 33.1 % (39.6-49.0); MCV 91.2 fL (80-100); MPV 6.3 fL (7.6-11.3); Platelets 229 thou/uL (152-406); RBC Red Blood Cell Count 3.63 M/uL (4.33-5.43)
[2023-05-06 10:18] LABS: Albumin 4.3 g/dL (3.4-5.0); Bilirubin Direct 0.2 mg/dL (0-0.2); Bilirubin Indirect, Calculated 0.3 mg/dL (0.2-0.8); Bilirubin Total 0.5 mg/dL (0.2-1.0); Magnesium 2.1 mg/dL (1.6-2.4); Potassium 4.2 mEq/L (3.5-5.1); Protein, Total 8.3 g/dL (6.4-8.2); Troponin High Sensitivity 3.6 pg/mL (<58.9)
--- NOTE | 2023-05-06 10:37 | RAD REPORT ---
EXAM DESCRIPTION: Yuri Single View05/06/2023 10:28 am CLINICAL HISTORY: Chest pain COMPARISON: January 2023 FINDINGS: The lungs appear clear of acute infiltrate. The heart is normal size Postsurgical changes involve the chest IMPRESSION: No acute abnormalities displayed
[2023-05-06] MEDS ORDERED: cloNIDine HCL 0.1 MG TAB ONE (13:31)
--- NOTE | 2023-05-06 14:46 | EDPHYS ---
Physician Documentation [facility] Name: Omero Fink Age: 67 yrs Sex: Male : 1955 Arrival Date: 05/06/2023 Time: 09:29 Bed 15 Private MD: ED Physician Rudy Hunt HPI: 05/06 17:35 This 67 yrs old Male presents to ER via Ambulatory with complaints of Chest Pain, High kdr Blood Pressure. 17:40 Patient presents today with a complaint of chest discomfort for the past 2 to 3 days. kdr Further this morning he noted that his blood pressure is elevated. Patient states he took his daily dose of Coreg at 6 AM. Since then he felt that his blood pressure had gone up rather than down. He took a second dose at 745 this morning. Patient otherwise is without significant planes is not toxic in any way not requiring any emergent intervention on initial presentation . Onset: The symptoms/episode began/occurred gradually, 3 day(s) ago. Severity of symptoms: At their worst the symptoms were mild in the emergency department the symptoms are unchanged. The patient has not experienced similar symptoms in the past. The patient has not recently seen a physician. 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 - Social history:: Smoking status: unknown. ROS: 17:40 Constitutional: Negative for fever, chills, and weight loss, Eyes: Negative for injury, kdr pain, redness, and discharge, ENT: Negative for injury, pain, and discharge, Neck: Negative for injury, pain, and swelling, Respiratory: Negative for shortness of breath, cough, wheezing, and pleuritic chest pain, Abdomen/GI: Negative for abdominal pain, nausea, vomiting, diarrhea, and constipation, Back: Negative for injury and pain, : Negative for injury, bleeding, discharge, and swelling, MS/Extremity: Negative for injury and deformity, Skin: Negative for injury, rash, and discoloration, Neuro: Negative for headache, weakness, numbness, tingling, and seizure activity. Psych: Negative for depression, anxiety, suicide ideation, homicidal ideation, and hallucinations, Allergy/Immunology: Negative for hives, rash, and allergies, Endocrine: Negative for neck swelling, polydipsia, polyuria, polyphagia, and marked weight changes, Hematologic/Lymphatic: Negative for swollen nodes, abnormal bleeding, and unusual bruising. 17:40 Cardiovascular: Positive for chest pain, Negative for edema, orthopnea, palpitations, paroxysmal nocturnal dyspnea. Exam: 17:40 Constitutional: This is a well developed, well nourished patient who is awake, alert, kdr and in no acute distress. Head/Face: Normocephalic, atraumatic. Eyes: Pupils equal round and reactive to light, extra-ocular motions intact. Lids and lashes normal. Conjunctiva and sclera are non-icteric and not injected. Cornea within normal limits. Periorbital areas with no swelling, redness, or edema. Neck: Trachea midline, no thyromegaly or masses palpated, and no cervical lymphadenopathy. Supple, full range of motion without nuchal rigidity, or vertebral point tenderness. No Meningismus. Chest/axilla: Normal chest wall appearance and motion. Nontender with no deformity. No lesions are appreciated. Cardiovascular: Regular rate and rhythm with a normal S1 and S2. No gallops, murmurs, or rubs. Normal PMI, no JVD. No pulse deficits. Respiratory: Lungs have equal breath sounds bilaterally, clear to auscultation and percussion. No rales, rhonchi or wheezes noted. No increased work of breathing, no retractions or nasal flaring. Abdomen/GI: Soft, non-tender, with normal bowel sounds. No distension or tympany. No guarding or rebound. No evidence of tenderness throughout. Back: No spinal tenderness. No costovertebral tenderness. Full range of motion. Skin: Warm, dry with normal turgor. Normal color with no rashes, no lesions, and no evidence of cellulitis. MS/ Extremity: Pulses equal, no cyanosis. Neurovascular intact. Full, normal range of motion. Neuro: Awake and alert, GCS 15, oriented to person, place, time, and situation. Cranial nerves II-XII grossly intact. Motor strength 5/5 in all extremities. Sensory grossly intact. Cerebellar exam normal. Normal gait. Psych: Awake, alert, with orientation to person, place and time. Behavior, mood, and affect are within normal limits. Vital Signs: 09:41 Pulse 71; Resp 16; Temp 98.1(TE); Pulse Ox 100% on R/A; Weight 72.57 kg; Height 5 ft. 2 ss in. ; Pain /; 09:58 BP 160 / 78; Pulse 66; Resp 15; Pulse Ox 98% ; jl7 11:12 BP 161 / 67; Pulse 63; Resp 14; Pulse Ox 100% on R/A; hb 12:29 BP 168 / 72; Pulse 61; Resp 15; Pulse Ox 97% on R/A; hb 13:36 BP 156 / 88; Pulse 62; Resp 15; Pulse Ox 100% on R/A; hb 14:23 BP 131 / 69; Pulse 65; Resp 16; Pulse Ox 98% on R/A; hb 09:41 Body Mass Index 29.26 (72.57 kg, 157.48 cm) ss 09:41 Pain Scale: Adult ss MDM: 14:45 Patient medically screened. kdr 17:40 Data reviewed: vital signs, nurses notes, lab test result(s), radiologic studies. kdr 05/06 09:32 Order name: Basic Metabolic Panel; Complete Time: 10:21 kdr 05/06 09:32 Order name: CBC with Diff; Complete Time: 10:21 kdr 05/06 09:32 Order name: LFT's; Complete Time: 10:21 kdr 05/06 09:32 Order name: Magnesium; Complete Time: 10:21 kdr 05/06 09:32 Order name: NT PRO-BNP; Complete Time: 10:21 kdr 05/06 09:32 Order name: Troponin HS; Complete Time: 10:21 kdr 05/06 10:21 Order name: Troponin High Sensitivity: Repeat two hours after initial draw/results; kdr Complete Time: 12:38 05/06 09:32 Order name: XRAY Chest (1 view); Complete Time: 12:38 kdr 05/06 09:32 Order name: EKG; Complete Time: 09:33 kdr 05/06 09:32 Order name: Cardiac monitoring; Complete Time: 09:44 kdr 05/06 09:32 Order name: EKG - Nurse/Tech; Complete Time: 09:45 kdr 05/06 09:32 Order name: IV Saline Lock; Complete Time: 09:50 kdr 05/06 09:32 Order name: Labs collected and sent; Complete Time: :50 kdr 05/06 09:32 Order name: O2 Per Protocol; Complete Time: :45 kdr 05/06 09:32 Order name: O2 Sat Monitoring; Complete Time: :45 kdr Administered Medications: 13:22 Drug: cloNIDine PO 0.1 mg Route: PO; hb 14:30 Follow up: Response: No adverse reaction hb Disposition Summary: 05/06/23 14:45 Discharge Ordered Location: Home kdr Problem: new kdr Symptoms: have improved kdr Condition: Stable kdr Diagnosis - Hypertensive heart disease without heart failure - Poorly controlled kdr Followup: kdr - With: Private Physician - When: 2 - 3 days - Reason: If symptoms return, Further diagnostic work-up, Recheck today's complaints, Continuance of care, Re-evaluation by your physician Discharge Instructions: - Discharge Summary Sheet kdr - Hypertension, Adult, [id number] kdr Forms: - Medication Reconciliation Form kdr - Thank You Letter kdr - Patient Portal Instructions kdr - Leadership Thank You Letter kdr Signatures: Dispatcher [employer] EDRudy Reece MD MD kdr Taryn Muonz RN RN ss Justyna Ramos RN RN Rishi Parra RN RN jl7 Corrections: (The following items were deleted from the chart) 09:44 09:42 PMHx: AFIB; ss
--- NOTE | 2023-05-06 14:46 | ER ---
Nurse's Notes [facility] Name: Omero Fink Age: 67 yrs Sex: Male : 1955 Arrival Date: 05/06/2023 Time: 09:29 Bed 15 Private MD: Diagnosis: Hypertensive heart disease without heart failure-Poorly controlled Presentation: 05/06 09:41 Chief complaint: Patient states: chest discomfort x 2-3 days and elevated blood ss pressure this morning. Pt states that he took his daily dose of Carvedilol 12.5 at 0600, but his blood pressure was going up rather than down, so he took another dose at 0745. Coronavirus screen: Client denies travel out of the [place] in the last 14 days. Ebola Screen: Patient denies exposure to infectious person. Patient denies travel to an Ebola-affected area in the 21 days before illness onset. Initial Sepsis Screen: Does the patient meet any 2 criteria? No. Patient's initial sepsis screen is negative. Does the patient have a suspected source of infection? No. Patient's initial sepsis screen is negative. Risk Assessment: Do you want to hurt yourself or someone else? Patient reports no desire to harm self or others. Onset of symptoms is unknown. 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 - Social history:: Smoking status: unknown. Screenin:50 [facility] ED Fall Risk Assessment (Adult) History of falling in the last 3 months, jl7 including since admission No falls in past 3 months (0 pts) Confusion or Disorientation No (0 pts) Intoxicated or Sedated No (0 pts) Impaired Gait No (0 pts) Mobility Assist Device Used No (0 pt) Altered Elimination No (0 pt) Score/Fall Risk Level 0 - 2 = Low Risk Oriented to surroundings, Maintained a safe environment. Abuse screen: Denies threats or abuse. Denies injuries from another. Nutritional screening: No deficits noted. Tuberculosis screening: No symptoms or risk factors identified. Assessment: 09:50 General: Appears in no apparent distress. uncomfortable, Behavior is calm, cooperative, jl7 appropriate for age. Pain: Complains of pain in anterior aspect of right upper chest and anterior aspect of left upper chest Pain does not radiate. Pain currently is 1 out of 10 on a pain scale. Quality of pain is described as punching Pain began gradually. Neuro: Level of Consciousness is awake, alert, obeys commands, Oriented to person, place, time, situation. Cardiovascular: Patient's skin is warm and dry. Respiratory: Airway is patent Respiratory effort is even, unlabored, Respiratory pattern is regular, symmetrical. Derm: Skin is pink, warm \T\ dry. 11:09 Reassessment: Patient appears in no apparent distress at this time. Patient and/or hb family updated on plan of care and expected duration. Pain level reassessed. Patient is alert, oriented x 3, equal unlabored respirations, skin warm/dry/pink. 12:29 Reassessment: Patient appears in no apparent distress at this time. Patient and/or hb family updated on plan of care and expected duration. Pain level reassessed. Patient is alert, oriented x 3, equal unlabored respirations, skin warm/dry/pink. 13:36 Reassessment: Patient appears in no apparent distress at this time. Patient and/or hb family updated on plan of care and expected duration. Pain level reassessed. Patient is alert, oriented x 3, equal unlabored respirations, skin warm/dry/pink. 14:24 Reassessment: Patient appears in no apparent distress at this time. Patient and/or hb family updated on plan of care and expected duration. Pain level reassessed. Patient is alert, oriented x 3, equal unlabored respirations, skin warm/dry/pink. Vital Signs: 09:41 Pulse 71; Resp 16; Temp 98.1(TE); Pulse Ox 100% on R/A; Weight 72.57 kg; Height 5 ft. 2 ss in. ; Pain 10/03; 09:58 BP 160 / 78; Pulse 66; Resp 15; Pulse Ox 98% ; jl7 11:12 BP 161 / 67; Pulse 63; Resp 14; Pulse Ox 100% on R/A; hb 12:29 BP 168 / 72; Pulse 61; Resp 15; Pulse Ox 97% on R/A; hb 13:36 BP 156 / 88; Pulse 62; Resp 15; Pulse Ox 100% on R/A; hb 14:23 BP 131 / 69; Pulse 65; Resp 16; Pulse Ox 98% on R/A; hb 09:41 Body Mass Index 29.26 (72.57 kg, 157.48 cm) ss 09:41 Pain Scale: Adult ss ED Course: 09:32 Patient arrived in ED. mr 09:32 Rudy Hunt MD is Attending Physician. kdr 09:42 Triage completed. ss 09:44 Arm band placed on left wrist. ss 09:45 Patient has correct armband on for positive identification. Placed in gown. Bed in low mm9 position. Call light in reach. Side rails up X 1. Warm blanket given. Client placed on continuous cardiac and pulse oximetry monitoring. NIBP monitoring applied. potline monitor on. Pulse ox on. NIBP on. 09:46 EKG done, by ED staff, reviewed by Rudy Hunt MD. mm9 09:50 Provided Education on: use of call fountain. jl7 09:50 Initial lab(s) drawn, by me, sent to lab. Inserted saline lock: 20 gauge in right jl7 antecubital area, using aseptic technique. Blood collected. Patient maintains SpO2 saturation greater than 95% on room air. 10:08 Justyna Ramos, RN is Primary Nurse. hb 10:30 XRAY Chest (1 view) In Process Unspecified. EDMS 15:01 No provider procedures requiring assistance completed. IV discontinued, intact, hb bleeding controlled, No redness/swelling at site. Administered Medications: 13:22 Drug: cloNIDine PO 0.1 mg Route: PO; hb 14:30 Follow up: Response: No adverse reaction hb Medication: 09:50 VIS not applicable for this client. jl7 Outcome: 14:45 Discharge ordered by . kdr 15:01 Discharged to home ambulatory. hb 15:01 Condition: stable 15:01 Discharge instructions given to patient, Instructed on discharge instructions, follow up and referral plans. medication usage, Demonstrated understanding of instructions, follow-up care, medications. 15:02 Patient left the ED. hb Signatures: Dispatcher [employer] EDCalvin Reecein, MD MD kdr Delatorre, Lea mr Taryn Munoz, RN RN ss Justyna Ramos RN RN Rishi Parra RN RN 7 Nichole Sparrow 9 Corrections: (The following items were deleted from the chart) 44 09:42 PMHx: AFIB; [facility]
[2023-05-06 15:47] VITALS: TEMP 98.1
[2023-05-06 15:56] VITALS: BP 131/69; O2SAT 98
--- NOTE | 2023-05-07 13:12 | EKG ---
Test Date: 2023-05-06 Test Time: 09:40:51 Call Worker Person: PRINCESS MEASUREMENT RESULTS: Intervals: Rate: 67 MN: 182 QRSD: 76 QT: 374 QTc: 395 [place]: P: 69 MN: 182 QRS: 82 T: 80 INTERPRETIVE STATEMENTS: Normal sinus rhythm Normal ECG Compared to ECG 02/03/2023 18:44:42 No significant changes Electronically Signed On 05-07-23 13:09:59 CDT by Ivan Duarte
== END 2023-05-06 15:02 | disposition home or self-care (01) ==
LOC: ER 09:29
DX: I11.9 Hypertensive heart disease without heart failure (principal); I10 Essential (primary) hypertension; Z95.1 Presence of aortocoronary bypass graft; Z79.82 Long term (current) use of aspirin
CPT/HCPCS: 36415; 71045; 80048; 80076; 83735; 83880; 84484; 85025; 93005; 99285